=== PATIENT | female | born 1990 | race Two or more races ===

== ENCOUNTER 2023-10-19 12:38 | Outpatient (REF) | payer OTHER, SELFPAY ==
--- NOTE | ~2023-10-19 | XR_ITS ---
EXAMINATION: XR KNEE, LEFT CLINICAL INFORMATION: Left knee pain. Buckling. COMPARISON: None available. TECHNIQUE: Four views of the left knee. FINDINGS: No fracture or joint effusion. Alignment is anatomic. Joint spaces are maintained. No abnormal soft tissue calcification. XR/XR knee LT 3V IMPRESSION: Unremarkable examination. Electronically signed by: Justo Steel MD 11/03/2023 08:33 PM EDT RP
== END 2023-10-19 12:39 | disposition home or self-care (01) ==
LOC: HO.HOSX 12:38
PROVIDERS: PCP Internal Medicine; Visit Provider Orthopaedic Surgery
DX: M25.562 Pain in left knee (principal)
CPT/HCPCS: 73562; 99202

== ENCOUNTER 2023-10-19 13:14 | Outpatient (AMB) | payer OTHER, SELFPAY ==
--- NOTE | 2023-10-19 13:16 | A.OFFVIS_ITS ---
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 Rodriguez presents with complaints of progressively worsening left knee pain and giving way. The patient states that she injured her left knee approximately 1 year ago. She twisted her knee and had acute onset of pain. Since that time her symptoms have gotten worse in spite of continued non operative treatments. She has failed the last 6 weeks of conservative treatment. She has had injections in the past which gave her minimal relief. She has also done physical therapy exercises which aggravated her pain. She has tried Tylenol and anti-inflammatory medicines which gave her minimal relief. She states that her left knee will give out several times per day. Allergies No Known Allergies Allergy (Verified 10/19/23 13:20) Medication List - Last Reconciled 10/20/23 by Ned Crandall MD No Known Home Meds Physical Exam Const Other: Well-nourished well-developed very friendly female awake alert and oriented x3 in no acute distress Extrem Other: Bilateral lower extremity examination shows good capillary refill, no skin lesions noted, normal sensation light touch Left knee examination shows a minimal effusion, minimal crepitus with range of motion, tenderness along her medial joint line, positive Td's test, no instability Results Reviewed Results Reviewed: Standing full weight-bearing x-rays of the patient's left knee show minimal joint space narrowing, no acute bony abnormalities Assessment & Plan Assessment & Plan (1) Left knee pain: Code(s): M25.562 - Pain in left knee Category: Medical Plan Ms. Rodriguez presents with progressively worsening left knee pain and mechanical symptoms most likely due to a tear of her medial meniscus. Thus, I will send the patient for an MRI of her left knee for further evaluation. I will see her back once the MRI is completed to discuss the findings and treatment options. Feel free to call me at any time should questions regarding her orthopedic management arise. Thank you very much for asking me to see this very friendly patient. I spent 21 minutes in reviewing the patient's records and imaging studies, seeing the patient and documenting in the medical record. Orders: Orders XR knee LT 3V 10/19/23 M25.562 - Pain in left knee MR knee LT wo con Today M25.562 - Pain in left knee Coding Level of Care Code New Pt Level 3 (44052) Complex EM visit Add On G2315 Diagnoses Left knee pain M25.561
== END 2023-10-19 13:41 | disposition home or self-care (01) ==
PROVIDERS: PCP Internal Medicine; Visit Provider Orthopaedic Surgery
DX: M25.562 Pain in left knee (principal)
CPT/HCPCS: 99203; G2211

== ENCOUNTER 2023-11-10 08:58 | Outpatient (AMB) | payer OTHER, SELFPAY ==
--- NOTE | 2023-11-10 09:00 | A.OFFVIS_ITS ---
Vital Signs 11/10/23 09:01 Height 4 ft 11 in Weight 210 lb BMI 42.4 Intake Visit Reasons: Left knee MRI Review Intake Note: Jeri is a 33 year old female who presents with mild intermittent discomfort in her left knee. The patient thinks that she may have aggravated her knee several months ago while doing sprints. She denies any locking or giving way. Since stopping the splints for exercise her knee has felt better. She has had cortisone injections given into her right knee which gave her fairly good relief. She wishes to hold off on a left knee injection for now. Allergies No Known Allergies Allergy (Verified 11/10/23 09:02) Medication List - Last Reconciled 11/10/23 by Ned Crandall MD No Known Home Meds [facility] Social History (Updated 11/10/23 @ 09:03 by GLORIA Madison) Alcohol intake: current Alcohol intake frequency: holidays/special occasions only Patient Tobacco Use Status: Current someday Tobacco user Substance Use Type: Marijuana Current occupational status: employed Current occupation: [employer] Physical Exam Vital Signs: BMI result Body Mass Index 42.4 Const Other: Well-nourished well-developed very friendly female awake alert and oriented x3 in no acute distress Extrem Other: Bilateral lower extremity examination shows good capillary refill, no skin lesions noted, normal sensation light touch Left knee examination shows a minimal effusion, minimal crepitus of motion, negative Td's test, no instability Results Reviewed Results Reviewed: MRI of the patient's left knee shows a benign 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 Rodriguez presents with intermittent left knee discomfort due to early degenerative joint disease as well as overuse. I had a lengthy discussion with the patient regarding the treatment options. We will hold off on a cortisone injection. Activity modifications were discussed at length with the patient. She will follow up with me on an as-needed basis should her symptoms worsen in any way. Feel free to call me at any time should questions regarding her orthopedic management arise. I spent 22 minutes in reviewing the patient's records and imaging studies, seeing the patient and documenting in the medical record. Coding Level of Care Code Est Pt Level 3 (98723) Complex EM visit Add On G2211 Diagnoses Left knee pain M25.562
[2023-11-10 09:01] VITALS: BMI 42.4
== END 2023-11-10 09:23 | disposition home or self-care (01) ==
PROVIDERS: PCP Internal Medicine; Visit Provider Orthopaedic Surgery
DX: M17.12 Unilateral primary osteoarthritis, left knee (principal)
CPT/HCPCS: 99213

== ENCOUNTER → 2023-11-10 08:58 | Outpatient (BNVA) | payer OTHER, SELFPAY | PROVIDERS: PCP Internal Medicine; Visit Provider Orthopaedic Surgery | DX: M25.562 Pain in left knee (principal) | CPT/HCPCS: 99212 ==

== ENCOUNTER 2024-12-20 14:55 | Outpatient (AMB) | payer OTHER, SELFPAY ==
--- OUTSIDE RECORDS SUMMARY | 2024-07-24 10:30 | XMS_ITS ---
Author Organization [facility] Address [address] [facility] 202 [place] [address] Care Team Providers Care Rag Room Supervisor Name Role Phone WILL FULLER Primary Care Provider Unavailab TAVO Lomeli [phone] REASON FOR VISIT WM f/up Encounters Encounter Location Date Provider Diagnosis [facility] [address] [address] 07/24/2024 TAVO CHACON Plan Of Treatment Next Appt Details Provider Name:TAVO CHACON , 01/18/2025 10:45:00 AM, [address] [place] [address] [address], [place], [address], Progress Notes * MICHAELDaniin LDOB: [birth year] (34 yo F)Acc No.[id number]:07/24/2024 Patient: Meliza MODE Jeri Pina Provider: Jillian CHACON MD :1990 A ge:33 Y S ex:Female Date:07/24/2024 Address[address] [place], [id number] Pcp:WILL FULLER Subjective: * Chief Complaints: * 1 . WM f/up. * Medical History: Objective: * Vitals: Assessment: Plan: * Treatment: * Images: * Electronic signature of MAU CHACON MD on 12/20/2024 at 06:02 PM EST Sign off status: Pending * Provider: Jillian CHACON MD Date: 07/24/2024 Generated for Mike bernal/Tish/Clarice on: 1 02/20/2024 06:02 PM EST
--- OUTSIDE RECORDS SUMMARY | 2024-07-25 09:30 | XMS_ITS ---
Author Organization [facility] Address 294 [facility] 202 [place] [address] Care Team Providers Care Beam Machine Operator Name Role Phone WILL FULLER Primary Care Provider Unavailab Rodney Jean-Baptiste [phone] REASON FOR VISIT WM f/up Encounters Encounter Location Date Provider Diagnosis [facility] 294 [facility] 202 [place] [address] 07/25/2024 Rodney Parker Plan Of Treatment Next Appt Details Provider Name:TAVO CHACON , 01/18/2025 10:45:00 AM, [address] [facility] [address], [place], [address], Progress Notes * MICHAEL Jeri LDOB: [birth year] (34 yo F)Acc No.[id number]:07/25/2024 Patient: Meliza MODE Jeri Pina Appointment Provider: Alexander Parker :1990 A ge:33 Y S ex:Female Date:07/25/2024 Address[address] [place], [place] Pcp:WILL FULLER Subjective: * Chief Complaints: * 1 . WM f/up. * Medical History: Objective: * Vitals: Assessment: Plan: * Treatment: * Images: * Electronic signature of Nelda Parker PA-C on 12/20/2024 at 06:02 PM EST Sign off status: Pending * Appointment Provider: Alexander Parker Date: 0 07/25/2024 Generated for Mike bernal/Tish/Clarice on: 1 02/20/2024 06:02 PM EST
--- OUTSIDE RECORDS SUMMARY | 2024-11-16 06:30 | XMS_ITS ---
Author Organization [facility] Address 294 [facility] 202 [place] [address] Care Team Providers Care Deep Tissue Massage Therapist Name Role Phone WILL FULLER Primary Care Provider Unavailab Rodney Jean-Baptiste [phone] REASON FOR VISIT WM f/up Encounters Encounter Location Date Provider Diagnosis [facility] [address] [address] 11/16/2024 Rodney Parker Plan Of Treatment Next Appt Details Provider Name:TAVO CHACON , 01/18/2025 10:45:00 AM, 294 [facility] [address], [place], [address], Progress Notes * PIPODaniin LDOB: [birth year] (34 yo F)Acc No.[id number]:11/16/2024 Patient: Meliza MODE Jeri Pina Appointment Provider: Alexander Parker :1990 A ge:34 Y S ex:Female Date:11/16/2024 Address:[address] [place], [place] Pcp:WILL FULLER Subjective: * Chief Complaints: * 1 . WM f/up. * Medical History: Objective: * Vitals: Assessment: Plan: * Treatment: * Procedure Codes: N OSHO NO SHOW FEE * Images: * Electronic signature of Nelda Parker PA-C on 12/20/2024 at 06:02 PM EST Sign off status: Pending * Appointment Provider: Alexander Parker Date: 1 Generated for Mike bernal/Tish/Clarice on: 02/20/2024 06:02 PM EST
--- OUTSIDE RECORDS SUMMARY | 2024-12-19 05:30 | XMS_ITS ---
Author Organization [employer] Address [address] [place] [address] [address] [place] [address] Care Team Providers Care Computer Security Specialist Name Role Phone DANIELEJohnathon WILL Primary Care Provider Unavailab TAVO Lomeli Unavailable [phone] Allergies No Known Allergies REASON FOR VISIT [...] Signs Temperature 97.4 degrees Fahrenheit 12/20/19 25 Oximetry 97 % 12/19/2024 Heart Rate 80 /min 12/19/2024 Blood pressure systolic 110 mm Hg 12/20/19 25 Blood pressure diastolic 80 mm Hg 025 Weight 195.8 lbs 12/19/2024 BMI 39.54 kg/m2 12/19/2024 Height 59 in 12/19/2024 Encounters Encounter Location Date Provider Diagnosis [facility] [address] [place] [address] 12/19/2024 TAVO CHACON Morbid (severe) obesity due [...] Meal replacements were recommended. Advised to use lwcs-eiu-wufkdjr multivitamins and vitamin D. Advised to use [...] Meal replacements were recommended. Advised to use evae-shk-cjechdi multivitamins and vitamin D. Advised to use [...] Provider Name:TAVO CHACON , 01/18/2025 10:45:00 AM, [address] [place] [address], [id number], Progress Notes * Jeri RODRIGUEZ LDOB: [birth year] (34 yo F)Acc No.[id number]:12/19/2024 Patient: Jeri HAIR Provider: Jillian CHACON MD :1990 A ge:34 Y S ex:Female Date:12/19/2024 Address:[address] [place] [address] [id number] Pcp:WILL FULLER Subjective: * Chief Complaints: * [...] Meal replacements were recommended. Advised to use xxjf-crb-meyqyxo multivitamins and vitamin D. Advised to use [...] Codes: 3 079F DIAST BP 80-89 MM [id number] SYST BP LT 130 MM HG * Follow Up: 4 Weeks * Images: * Sign off status: Completed true * Provider: Jillian CHACON MD Date: 02/19/2024 Generated for Mike bernal/Tish/Pepperitting on: 02/20/2024 06:02 PM EST History and Physical Notes * [...]
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
[2024-12-20 15:15] VITALS: BP 116/74; BMI 37.2
--- OUTSIDE RECORDS SUMMARY | 2024-12-20 18:02 | XMS_ITS | Encounter Summary ---
Author Organization [facility] Address [address] [place] [address] Care Team Providers Care Security Trainer Name Role Phone Yue Judy Ribera MD Primary Care Provider [phone] Encounter Details Date Type Department Care Team (Latest Contact Info) Description 09/13/2024 Lab Requisition [facility] - Main Lab [address] [facility] [place] [address] [facility] [address] [place] [address] Urinary tract infection, site not specified; Hematuria, unspecified; Other specified noninflammatory disorders of vagina Social History Tobacco Use Types Packs/Day Years Used Date Smoking Tobacco: Some Days Cigarettes Started: 03/20/2008 Smokeless Tobacco: Never Alcohol Use Standard Drinks/Week Comments Yes 0 (1 standard drink = 0.6 oz pur e alcohol) Comments Unknown Sex and Gender Information Value Date Recorded Sex Assigned at Not on file Legal Sex Female 1:32 AM EST Gender Identity Not on file Sexual Orientation Not on file documented as of this encounter Plan of Treatment Not on file documented as of this encounter Procedures Procedure Name Priority Date/Time Associated Diagnosis Comments URINALYSIS WITH REFLEX MICROSCOPIC Routine 09/13/2024 12:00 AM EDT Urinary tract infection, site not specified Hematuria, unspecified Other specified noninflammatory disorders of vagina URINALYSIS WITH REFLEX MICROSCOPIC Routine 09/13/2024 12:00 AM EDT Urinary tract infection, site not specified Hematuria, unspecified Other specified noninflammatory disorders of vagina VAGINITIS PATHOGENS BY PCR Routine 09/13/2024 12:00 AM EDT Urinary tract infection, site not specified Hematuria, unspecified Other specified noninflammatory disorders of vagina CHLAMYDIA TRACHOMATIS AND NEISSERIA GONORRHOEAE PCR Routine 09/13/2024 12:00 AM EDT Urinary tract infection, site not specified Hematuria, unspecified Other specified noninflammatory disorders of vagina CULTURE URINE Routine 09/13/2024 12:00 AM EDT Urinary tract infection, site not specified Hematuria, unspecified Other specified noninflammatory disorders of vagina documented in this encounter Results * (ABNORMAL) Vaginitis pathogens molecular study (09/13/2024 12:00 AM EDT) Trichomonas vaginalis Negative Negative 09/14/2024 10:36 AM EDT [facility] Gardnerella vaginalis Positive(A) Negative 09/14/2024 10:36 AM EDT [facility] Molly Species Negative Negative 10:36 AM EDT [facility] Swab Vaginal structure / Unknown 09/13/2024 09/13/2024 7:32 PM EDT [facility] MICROBIOLOGY - GENERAL ORDER THANG Final Result [facility] [address] [place] [address], * Chlamydia trachomatis and Neisseria gonorrhoeae molecular study (09/13/2024 12:00 AM EDT) Neisseria gonorrhoeae PCR Negative Negative LAB MOLECULAR DIAGNOSTICS METHOD 09/14/2024 9:36 AM EDT [facility] Chlamydia trachomatis PCR Negative Negative LAB MOLECULAR DIAGNOSTICS METHOD 09/14/2024 9:36 AM EDT [facility] Urine Cervix uteri structure / Unknown 09/13/2024 09/13/2024 7:32 PM EDT [facility] MICROBIOLOGY - GENERAL ORDER THANG Final Result [facility] [address] [place] [address], [place] [phone] * (ABNORMAL) Urinalysis with reflex microscopic (09/13/2024 12:00 AM EDT) Pathologist [facility] Specific [place] Urine 1.024 1.003 - 1.030 LAB URINALYSIS - AUTOMATED METHOD [facility]2024 [facility] pH, Urine 6.0 5.0 - 8.0 pH LAB URINALYSIS - AUTOMATED METHOD 09/13/2024 8:03 PM [facility] Leukocytes, Urine Negative Negative LAB URINALYSIS - AUTOMATED METHOD 09/13/2024 8:03 PM [facility] Nitrite, Urine Negative Negative LAB URINALYSIS - AUTOMATED METHOD 09/13/2024 8:03 PM [facility] Protein, Urine Negative <=Trace mg/dL LAB URINALYSIS - AUTOMATED METHOD 09/13/2024 8:03 PM [facility] Glucose, Urine Negative Negative mg/dL LAB URINALYSIS - AUTOMATED METHOD 09/13/2024 8:03 PM [facility] Ketones, Urine Trace(A) Negative mg/dL LAB URINALYSIS - AUTOMATED METHOD 09/13/2024 8:03 PM [facility] Urobilinogen, Urine 1.0 0.2 - 1.0 mg/dL LAB URINALYSIS - AUTOMATED METHOD 09/13/2024 8:03 PM [facility] Bilirubin, Urine Negative Negative LAB URINALYSIS - AUTOMATED METHOD 09/13/2024 8:03 PM [facility] Blood, Urine Negative Negative LAB URINALYSIS - AUTOMATED METHOD 09/13/2024 8:03 PM EDT [facility] Urine Urine specimen obtained by clean catch procedure / Unknown 09/13/2024 09/13/2024 7:32 PM EDT [facility] URINE ORDERABLES Final Resul t Performing Organization Address [facility]/ZIP Co de Phone Number [facility] [address] [place] [address], [place] [phone] * Culture urine (09/13/2024 12:00 AM EDT) Culture, Urine No growth 09/14/2024 1:58 PM EDT [facility] Urine Urine specimen obtained by clean catch procedure / Unknown 09/13/2024 09/13/2024 7:32 PM EDT [facility] MICROBIOLOGY - GENERAL ORDER THANG Final Result Performing Organization Address [facility] Co de Phone Number [facility] [address] [place] [address], [place] [phone] documented in this encounter Visit Diagnoses Diagnosis Urinary tract infection, site not specified Hematuria, unspecified Other specified noninflammatory disorders of vagina documented in this encounter Additional Health Concerns Infection Onset Date Last Indicated Resolved Time Herpes simplex 10/22/2024 10/22/2024 documented as of this encounter Care Teams Security Trainer Relationship Specialty Start Date End Date Judy Turner MD [address] [place] [address] PCP - General Internal Medicine 08/28/21 documented as of this encounter
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
--- OUTSIDE RECORDS SUMMARY | 2024-12-20 18:02 | XMS_ITS | Patient Health Record ---
Author Organization [facility] Address [address] [place] [address] Care Team Providers Care Silk Screener Name Role Phone JONNY WILL Primary Care Provider Unavailab jacob CHACON VO Unavailable [phone] JasealeksandarRodney whittaker Unavailable [phone] Allergies No Known Allergies Results Component Value Reference Range Notes TREPONEMA PALLIDUM ANTIBODY WITH REFLEX TO RPR AND PARTICLE AGGLUTINATION Reviewed date:10/23/2024 08:01:30 AM Interpretation: Performing Lab: Notes/Report: T. Pallidum Antibodies Negative Negative HERPES SIMPLEX VIRUS 1 AND 2 , IGG Reviewed date:10/23/2024 12:24:36 PM Interpretation: Performing Lab: Notes/Report: HSV 1 IgG 45.80 <=0.90 index cr HSV-1 IgG Interpretation Positive Negative HSV 2 IgG 0.35 <=0.90 index cr HSV-2 IgG Interpretation Negative Negative VAGINITIS PATHOGENS MOLECULA R STUDY Reviewed date:10/24/2024 03:07:30 PM Interpretation: Performing Lab: Notes/Report: Trichomonas vaginalis Negative Negative Gardnerella vaginalis Positive Negative Molly Species Positive Negative HEPATITIS B SCREENING PANEL Reviewed date:10/23/2024 08:01:33 AM Interpretation: Performing Lab: Notes/Report: Hepatitis B Surface Ag Negative Negative Hep B Core Total Ab Negative Negative Hepatitis B Surface Ab Positive Negative HEPATITIS C VIRUS QUANTITATI VE MOLECULAR STUDY Reviewed date:10/23/2024 12:24:33 PM Interpretation: Performing Lab: Notes/Report: HCV Qual Interp Not Detected Not Detected HCV RNA not detected, unable to report quantitative results. CHLAMYDIA TRACHOMATIS AND NE ISSERIA GONORRHOEAE MOLECULAR STUDY Reviewed date:10/23/2024 12:24:31 PM Interpretation: Performing Lab: Notes/Report: Neisseria gonorrhoeae PCR Negative Negative Chlamydia trachomatis PCR Negative Negative HIV 1, 2 ANTIBODY, P24 ANTIG EN WITH REFLEX TO DIFFERENTIATION Reviewed date:10/23/2024 08:01:48 AM Interpretation: Performing Lab: Notes/Report: This assay is a 4th generation assay allowing for earlier detection of HIV infection by detecting the presence of the HIV-1 p24 antigen as well as the traditional antibodies to HIV type 1 (including group O) and type 2. Use of a 4th generation assay is the current CDC recommendation for HIV screening. HIV Combo AB/AG Negative Negative HEPATITIS C ANTIBODY Reviewed date:10/23/2024 08:01:56 AM Interpretation: Performing Lab: Notes/Report: Hepatitis C Antibody Negative Negative CULTURE URINE Reviewed date:10/23/2024 05:03:55 PM Interpretation: Performing Lab: Notes/Report: Culture, Urine No growth URINALYSIS WITH REFLEX MICRO SCOPIC Reviewed date:10/23/2024 12:24:43 PM Interpretation: Performing Lab: Notes/Report: Specific Dyer Urine 1.026 1.003-1.030 pH, Urine 6.0 5.0-8.0 pH Leukocytes, Urine Small Negative Nitrite, Urine Negative Negative Protein, Urine Negative <=Trace mg/dL Glucose, Urine Negative Negative mg/dL Ketones, Urine Negative Negative mg/dL Urobilinogen, Urine 0.2 0.2-1.0 mg/dL Bilirubin, Urine Negative Negative Blood, Urine Negative Negative RBC, Urine 2.0 0-4 /HPF WBC, Urine 10.1 0-4 /HPF Squamous Epithelial, Urine >100 0-60 /LPF Bacteria, Urine Few Negative /HPF Hyaline Casts, Urine 2.4 0-3 /LPF THYROID STIMULATING HORMONE Reviewed date:06/03/2024 07:18:44 AM Interpretation: Performing Lab: Notes/Report: TSH 2.22 0.40-4.00 mcIU/mL HEMOGLOBIN A1C Reviewed date:06/02/2024 06:41:19 PM Interpretation: Performing Lab: Notes/Report: Hemoglobin A1C 5.6 <6.5 % Mean Bld Glu Estim. 114 LIPID PANEL WITH REFLEX TO D IRECT LDL Reviewed date:06/03/2024 07:18:50 AM Interpretation: Performing Lab: Notes/Report: Cholesterol 186 0-200 mg/dL Triglycerides 179 0-150 mg/dL HDL 48 >=40 mg/dL LDL Calculated 102 0-100 mg/dL VLDL Cholesterol Murali 35.8 Non HDL Chol. (LDL+VLDL) 138 <145 mg/dL Chol/HDL Ratio 3.9 0.0-4.4 VAGINITIS PATHOGENS MOLECULA R STUDY Reviewed date:09/14/2024 01:54:52 PM Interpretation: Performing Lab: Notes/Report: Trichomonas vaginalis Negative Negative Gardnerella vaginalis Positive Negative Molly Species Negative Negative CHLAMYDIA TRACHOMATIS AND NE ISSERIA GONORRHOEAE MOLECULAR STUDY Reviewed date:09/14/2024 01:54:55 PM Interpretation: Performing Lab: Notes/Report: Neisseria gonorrhoeae PCR Negative Negative Chlamydia trachomatis PCR Negative Negative HIV 1, 2 ANTIBODY, P24 ANTIG EN WITH REFLEX TO DIFFERENTIATION Reviewed date:09/14/2024 07:48:49 AM Interpretation: Performing Lab: Notes/Report: This assay is a 4th generation assay allowing for earlier detection of HIV infection by detecting the presence of the HIV-1 p24 antigen as well as the traditional antibodies to HIV type 1 (including group O) and type 2. Use of a 4th generation assay is the current CDC recommendation for HIV screening. HIV Combo AB/AG Negative Negative TREPONEMA PALLIDUM ANTIBODY WITH REFLEX TO RPR AND PARTICLE AGGLUTINATION Reviewed date:09/14/2024 07:48:55 AM Interpretation: Performing Lab: Notes/Report: T. Pallidum Antibodies Negative Negative CULTURE URINE Reviewed date:09/17/2024 07:40:19 AM Interpretation: Performing Lab: Notes/Report: Culture, Urine No growth URINALYSIS WITH REFLEX MICRO SCOPIC Reviewed date:09/14/2024 07:53:02 AM Interpretation: Performing Lab: Notes/Report: Specific Dyer Urine 1.024 1.003-1.030 pH, Urine 6.0 5.0-8.0 pH Leukocytes, Urine Negative Negative Nitrite, Urine Negative Negative Protein, Urine Negative <=Trace mg/dL Glucose, Urine Negative Negative mg/dL Ketones, Urine Trace Negative mg/dL Urobilinogen, Urine 1.0 0.2-1.0 mg/dL Bilirubin, Urine Negative Negative Blood, Urine Negative Negative GASTROINTESTINAL PATHOGENS M MATIAS STUDY Reviewed date:05/21/2024 11:51:59 AM Interpretation: Performing Lab: Notes/Report: PCR testing is much more sensitive than traditional techniques and allows for the detection of low numbers of stool pathogens. The clinical correlation of PCR results with the need for treatment and clinical outcomes has not been established. Therefore the results of PCR testing for stool pathogens must be taken into clinical context when making treatment decisions. This is a diagnostic test only, repeat testing for cure is not advised. You may consider infectious disease consult for additional guidance. Testing Performed by MULTIPLEXED PCR Campylobacter Detection by PCR Not Detected Not Detected Plesiomonas shigelloides Detection by PCR Not Detected Not Detected Salmonella Detection by PCR Not Detected Not Detected Vibrio Detection by PCR Not Detected Not Detected Vibrio cholerae Detection by PCR Not Detected Not Detected Yersinia enterocolitica Detection by PCR Not Detected Not Detected Enteroaggregative E coli EAEC Detection by PCR Not Detected Not Detected Enteropathogenic E coli EPEC Detection Not Detected Not Detected Enterotoxigenic E coli ETEC LTST Detection Not Detected Not Detected Shiga-like toxin producing E coli STEC STX1 STX2 Det Not Detected Not Detected Shigella Enteroinvasive E coli EIEC Detection Not Detected Not Detected Cryptosporidium Detection by PCR Not Detected Not Detected Cyclospora cayetanensis Detection by PCR Not Detected Not Detected Entamoeba histolytica Detection by PCR Not Detected Not Detected Giardia lamblia Detection by PCR Not Detected Not Detected Adenovirus F 40 41 Detection by PCR Not Detected Not Detected Astrovirus Detection by PCR Not Detected Not Detected Norovirus GI GII Detection by PCR Not Detected Sapovirus Detection by PCR Not Detected Not Detected Rotavirus A Detection by PCR Not Detected Not Detected BILIRUBIN DUPLICATE PROCEDUR E TO ORDER Reviewed date:05/16/2024 07:47:51 AM Interpretation: Performing Lab: Notes/Report: Total Bilirubin 0.5 0.0-1.4 mg/dL Bilirubin, Direct 0.2 0.0-0.3 mg/dL Bilirubin, Indirect 0.3 0.0-1.1 mg/dL C-REACTIVE PROTEIN Reviewed date:05/16/2024 07:47:57 AM Interpretation: Performing Lab: Notes/Report: C-Reactive Protein <0.29 <=0.50 mg/dL SEDIMENTATION RATE Reviewed date:05/15/2024 05:17:50 PM Interpretation: Performing Lab: Notes/Report: Sed Rate 6 0-20 mm/hr CULTURE URINE Reviewed date:05/17/2024 03:42:55 PM Interpretation: Performing Lab: Notes/Report: Culture, Urine 10,000-49,000 CFU/mL Mixed urogenital shan, no uropathogens present. Suggest repeat specimen if clinically indicated. COMPREHENSIVE METABOLIC PANE L Reviewed date:05/16/2024 07:49:17 AM Interpretation: Performing Lab: Notes/Report: Sodium 136 133-145 mmol/L Potassium 3.7 3.5-5.5 mmol/L Chloride 106 96-110 mmol/L CO2 21 21-32 mmol/L Anion Gap 9 3-11 Glucose 111 70-100 mg/dL BUN 14 5-25 mg/dL Creatinine 0.92 0.50-1.10 mg/dL eGFR 83 >=60 mL/min/1.73m2 Calculation based on the?Chronic Kidney Disease Epidemiology Collaboration (CKD-EPI) equation refit?without adjustment for race. BUN/Creatinine Ratio 15.2 Calcium 9.4 8.5-10.5 mg/dL AST (SGOT) 30 10-42 unit/L ALT (SGPT) 55 10-60 unit/L Alkaline Phosphatase 58 42-121 unit/L Total Protein 7.1 6.0-8.0 g/dL Albumin 4.0 3.2-5.0 g/dL Total Bilirubin 0.5 0.0-1.4 mg/dL CBC WITH AUTO DIFFERENTIAL Reviewed date:05/15/2024 05:18:26 PM Interpretation: Performing Lab: Notes/Report: WBC 7.2 4.8-10.8 K/mcL RBC 4.70 3.80-4.80 M/mcL Hemoglobin 13.6 11.5-16.0 g/dL Hematocrit 40.9 35.0-47.0 % MCV 86.3 79.0-98.0 FL MCH 28.7 27.0-32.0 pcg MCHC 33.3 32.0-37.0 g/dL RDW 12.6 11.0-15.0 % Platelets 284 130-400 K/mcL MPV 9.7 7.0-11.0 FL NRBC 0.0 <1.0 % NRBC Absolute 0.00 <0.10 K/mcL Neutrophils Relative 65.6 Lymphocytes Relative 24.4 Monocytes Relative 6.8 Eosinophils Relative 1.5 Basophils Relative 0.6 Immature Granulocytes Relative 1.1 Neutrophils Absolute 4.69 1.50-7.00 K/mcL Lymphocytes Absolute 1.75 1.00-5.00 K/mcL Monocytes Absolute 0.49 0.20-1.00 K/mcL Eosinophils Absolute 0.11 0.00-0.50 K/mcL Basophils Absolute 0.04 0.00-0.20 K/mcL Immature Granulocytes Absolute 0.08 0.00-0.03 K/mcL URINALYSIS WITH REFLEX MICRO SCOPIC Reviewed date:05/16/2024 07:46:29 AM Interpretation: Performing Lab: Notes/Report: Specific Dyer Urine 1.026 1.003-1.030 pH, Urine 5.0 5.0-8.0 pH Leukocytes, Urine Negative Negative Nitrite, Urine Negative Negative Protein, Urine Negative <=Trace mg/dL Glucose, Urine Negative Negative mg/dL Ketones, Urine Trace Negative mg/dL Urobilinogen, Urine 0.2 0.2-1.0 mg/dL Bilirubin, Urine Negative Negative Blood, Urine Negative Negative Reason For Referral No Information Medications Medication SIG (Take, Route, Frequency, Duration) Notes Start Date End Date Status Triamcinolone (oint)-Silicone Active Cetirizine HCl 10 MG 1 tablet Orally Onc e a day Active Qsymia 7.5-46 MG 1 capsule Orally Onc e a day; Duration: 30 days 08/19/2022 Not-Takin g Zepbound 2.5 MG/0.5ML 0.5 mL Subcutaneou s weekly; Duration: 30 days 06/20/2024 Not-Taking Qsymia 3.75-23 MG 1 capsule Orally Onc e a day; Duration: 14 days 05/31/2022 Not-Takin g Phentermine HCl 15 MG 1 capsule Orally O nce a day; Duration: 30 days 12/19/2024 Active Albuterol Sulfate 108 (90 Base) MCG/ACT 1 puff as needed Inhalation every 4 hrs Active Topiramate 50 MG 1 tablet Orally Once a day; Duration: 30 days 10/19/2024 Active Immunizations Vaccine Route Administration Date Status Comme nts DTP Unknown 1988 Administered DTP Unknown 01/14/1989 Administered DTP Unknown 03/17/1989 Administered DTP Unknown 07/15/1990 Administered DTP Unknown 08/14/1993 Administered Hep B, adolescent or pediatr ic (11-19), 3 dose schedule Unknown 01/05/2002 Administered Hep B, adolescent or pediatr ic (11-19), 3 dose schedule Unknown 02/21/2002 Administered Hep B, adolescent or pediatr ic (11-19), 3 dose schedule Unknown 04/05/2003 Administered HPV (human papillomavirus), quadrivalent, 3 dose schedule Unknown 05/23/2008 Administered HPV (human papillomavirus), quadrivalent, 3 dose schedule Unknown 07/30/2008 Administered HPV (human papillomavirus), quadrivalent, 3 dose schedule Unknown 04/01/2009 Administered IPV Unknown 1988 Administered IPV Unknown 01/14/1989 Administered IPV Unknown 07/15/1990 Administered IPV Unknown 08/14/1993 Administered Meningococcal MCV4O (CVX 114) Unknown 05/23/2008 Admini stered MMR Unknown 09/14/1989 Administered MMR Unknown 11/14/1990 Administered Pneumococcal polysaccharide PPV23 Unknown 02/02/2013 Ad ministered Td (adult), absorbed Unknown 01/05/2002 Administered Td (adult), absorbed Unknown 03/28/2019 Administered Tdap Unknown 05/23/2008 Administered Social History Tobacco Use: Social History Observation Description Date Details (start date - stop date) Current Smoker NA - NA Tobacco Use/Smoking Question Answer Notes Are you a current smoker How often do you smoke cigarettes? every day How many cigarettes a day do you smoke? 5 or les s Alcohol Screen (Audit-C) Question Answer Notes Did you have a drink contain ing alcohol in the past year? Yes How often did you have a dri nk containing alcohol in the past year? 2 to 4 times a month (2 points) How many drinks did you have on a typical day when you were drinking in the past year? 1 or 2 drinks (0 point) Points 2 Interpretation Negative Problems Problem Type SNOMED Code ICD Code Onset Dates Problem Status W/U Status Risk Notes Problem Morbid obesity (disorder) (748123301) Morbid (severe) obesity due to excess calories (E66.01) Active confirmed Problem Cannabis abuse (41127118) Cannabis abuse, uncomplicated (F12.10) Active confirmed Problem Tobacco user (046045357) Nicotine dependence, cigarettes, uncomplicated (F17.210) Active confirmed Problem Mild intermittent asthma (089291309) Mild intermittent asthma, uncomplicated (J45.20) Active confirmed Vital Signs Heart Rate 80 /min 12/19/2024 Temperature 97.4 degrees Fahrenheit 12/19/2024 Oximetry 97 % 12/19/2024 Blood pressure diastolic 80 mm Hg 12/19/2024 Height 59 in 12/19/2024 Blood pressure systolic 110 mm Hg 12/19/2024 Weight 195.8 lbs 12/19/2024 BMI 39.54 kg/m2 12/19/2024 Encounters Encounter Location Date Provider Diagnosis [facility] [address] [place] [address] 11/16/2024 Ghadeer Mazloum [facility] [address] [place] [address] 06/19/2024 VO GUL Morbid (severe) obesity due to excess calories E66.01 and Dietary counseling and surveillance Z71.3 [facility] [address] [place] [address] 08/01/2024 Ghadeer Mazloum Morbid (severe) obesity due to excess calories E66.01 and Dietary counseling and surveillance Z71.3 [facility] [address] [place] [address] 08/30/[address] [place] [address] 09/06/2024 Ghadeer Mazloum Morbid (severe) obesity due to excess calories E66.01 and Dietary counseling and surveillance Z71.3 [facility] [address] [place] [address] 10/19/2024 Ghadeer Mazloum Morbid (severe) obesity due to excess calories E66.01 and Dietary counseling and surveillance Z71.3 [facility] [address] [place] [address] 12/19/2024 VO GUL Morbid (severe) obesity due to excess calories E66.01 and Dietary counseling and surveillance Z71.[address] [place] [address] 06/20/[address] [place] [address] 06/20/[address] [place] [address] 06/25/[address] [place] [address] 07/25/[address] [place] [address] 08/30/[address] [place] [address] 09/04/[address] [place] [address] 09/10/[address] [place] [address] 10/19/[address] [place] [address] [facility] Morbid (severe) obesity due to excess calories E66.[address] [place] [address] 10/24/[address] [place] [address] 11/19/2024 Rodney Parker Assessments Encounter Date Diagnosis (ICD Code) Assessment Notes Treatment Notes Treatment Clinical Notes Section Notes 06/19/2024 Morbid (severe) obesity due to excess calories (ICD-10 - E66.01) Jeri is 33 years old lady with mild intermittent asthma is here today to continue medical weight management. She was seen 2 years ago. Her weight is stable. She was on Qsymia at the time. Dietary recommendations. Food recall was done today and patient advised to be on low calorie, low carbohydrate diet. Restrict calories to less than 1500 kcal in 24 hours. Low glycemic index foods and encouraged. Meal replacements were recommended. Advised to use paim-nch-oearucl multivitamins and vitamin D. Advised to use calorie counter and adhere to portion control. Monthly goal is to lose 4-6 pounds Pharmacotherapy. She is interested in GLP-1. She will check with her insurance and let us know. Side effects explained to the patient. Goal [...] interviewing done. Arrange. Follow-up appointment arranged. Counseling. 20 minutes spent Face to face with the patient more than 50% of time was spent counseling 06/19/2024 Dietary counseling and surveillance (ICD-10 - Z71.3) Jeri is 33 years old lady with mild intermittent asthma is here today to continue medical weight management. She was seen 2 years ago. Her weight is stable. She was on Qsymia at the time. Dietary recommendations. Food recall was done today and patient advised to be on low calorie, low carbohydrate diet. Restrict calories to less than 1500 kcal in 24 hours. Low glycemic index foods and encouraged. Meal replacements were recommended. Advised to use yrlz-fth-ttmeqpy multivitamins and vitamin D. Advised to use calorie counter and adhere to portion control. Monthly goal is to lose 4-6 pounds Pharmacotherapy. She is interested in GLP-1. She will check with her insurance and let us know. Side effects explained to the patient. Goal [...] interviewing done. Arrange. Follow-up appointment arranged. Counseling. 20 minutes spent Face to face with the patient more than 50% of time was spent counseling 08/01/2024 Morbid (severe) obesity due to excess calories (ICD-10 - E66.01) Jeri is 33 years old lady with mild intermittent asthma is here today to continue medical weight management. She lost 8lbs since the last visit. Plan as follows: Dietary recommendations. Food recall was done today and patient advised to be on low calorie, low carbohydrate diet. Restrict calories to less than 1500 kcal in 24 hours. Low glycemic index foods and encouraged. Meal replacements were recommended. Advised to use srjh-qqu-jdwnisu multivitamins and vitamin D. Advised to use calorie counter and adhere to portion control. Monthly goal is to lose 4-6 pounds Pharmacotherapy. Continue on Phentermine 15mg. Side effects explained to the patient. Goal [...] interviewing done. Arrange. Follow-up appointment arranged. Counseling. 20 minutes spent Face to face with the patient more than 50% of time was spent counseling General concerns have been discussed I have rendered the services for this patient under direct supervision of Dr. Chacon, who did not see the patient but was available upon request 08/01/2024 Dietary counseling and surveillance (ICD-10 - Z71.3) Jeri is 33 years old lady with mild intermittent asthma is here today to continue medical weight management. She lost 8lbs since the last visit. Plan as follows: Dietary recommendations. Food recall was done today and patient advised to be on low calorie, low carbohydrate diet. Restrict calories to less than 1500 kcal in 24 hours. Low glycemic index foods and encouraged. Meal replacements were recommended. Advised to use jnce-ojn-ujoszch multivitamins and vitamin D. Advised to use calorie counter and adhere to portion control. Monthly goal is to lose 4-6 pounds Pharmacotherapy. Continue on Phentermine 15mg. Side effects explained to the patient. Goal [...] interviewing done. Arrange. Follow-up appointment arranged. Counseling. 20 minutes spent Face to face with the patient more than 50% of time was spent counseling General concerns have been discussed I have rendered the services for this patient under direct supervision of Dr. Chacon, who did not see the patient but was available upon request 09/06/2024 Morbid (severe) obesity due to excess calories (ICD-10 - E66.01) Jeri is 33 years old lady with mild intermittent asthma is here today to continue medical weight management. She lost 4lbs since the last visit. Plan as follows: Dietary recommendations. Food recall was done today and patient advised to be on low calorie, low carbohydrate diet. Restrict calories to less than 1500 kcal in 24 hours. Low glycemic index foods and encouraged. Meal replacements were recommended. Advised to use ujmw-wqk-thhavba multivitamins and vitamin D. Advised to use calorie counter and adhere to portion control. Monthly goal is to lose 4-6 pounds Pharmacotherapy. Continue on Phentermine 15mg. Topamax added to the regimen. Side effects explained to the patient. Goal [...] interviewing done. Arrange. Follow-up appointment arranged. Counseling. 20 minutes spent Face to face with the patient more than 50% of time was spent counseling General concerns have been discussed I have rendered the services for this patient under direct supervision of Dr. Chacon, who did not see the patient but was available upon request 09/06/2024 Dietary counseling and surveillance (ICD-10 - Z71.3) Jeri is 33 years old lady with mild intermittent asthma is here today to continue medical weight management. She lost 4lbs since the last visit. Plan as follows: Dietary recommendations. Food recall was done today and patient advised to be on low calorie, low carbohydrate diet. Restrict calories to less than 1500 kcal in 24 hours. Low glycemic index foods and encouraged. Meal replacements were recommended. Advised to use gfsz-pvw-fdtqijx multivitamins and vitamin D. Advised to use calorie counter and adhere to portion control. Monthly goal is to lose 4-6 pounds Pharmacotherapy. Continue on Phentermine 15mg. Topamax added to the regimen. Side effects explained to the patient. Goal [...] interviewing done. Arrange. Follow-up appointment arranged. Counseling. 20 minutes spent Face to face with the patient more than 50% of time was spent counseling General concerns have been discussed I have rendered the services for this patient under direct supervision of Dr. Chacon, who did not see the patient but was available upon request 10/19/2024 Morbid (severe) obesity due to excess calories (ICD-10 - E66.01) Jeri is 34 years old lady with mild intermittent asthma is here today to continue medical weight management. She lost a total of 14 pounds so far And 2lbs since the last visit. Plan as follows: Dietary recommendations. Food recall was done today and patient advised to be on low calorie, low carbohydrate diet. Restrict calories to less than 1500 kcal in 24 hours. Low glycemic index foods and encouraged. Meal replacements were recommended. Advised to use ftyt-jqb-grmcpsj multivitamins and vitamin D. Advised to use calorie counter and adhere to portion control. Monthly goal is to lose 4-6 pounds Pharmacotherapy. Increased Phentermine 30mg. Topamax Increase to 50 mg twice a day. Side effects explained to the patient. Goal [...] interviewing done. Arrange. Follow-up appointment arranged. Counseling. 20 minutes spent Face to face with the patient more than 50% of time was spent counseling General concerns have been discussed I have rendered the services for this patient under direct supervision of Dr. Chacon, who did not see the patient but was available upon request 10/19/2024 Dietary counseling and surveillance (ICD-10 - Z71.3) Jeri is 34 years old lady with mild intermittent asthma is here today to continue medical weight management. She lost a total of 14 pounds so far And 2lbs since the last visit. Plan as follows: Dietary recommendations. Food recall was done today and patient advised to be on low calorie, low carbohydrate diet. Restrict calories to less than 1500 kcal in 24 hours. Low glycemic index foods and encouraged. Meal replacements were recommended. Advised to use [id number] multivitamins and vitamin D. Advised to use calorie counter and adhere to portion control. Monthly goal is to lose 4-6 pounds Pharmacotherapy. Increased Phentermine 30mg. Topamax Increase to 50 mg twice a day. Side effects explained to the patient. Goal [...] interviewing done. Arrange. Follow-up appointment arranged. Counseling. 20 minutes spent Face to face with the patient more than 50% of time was spent counseling General concerns have been discussed I have rendered the services for this patient under direct supervision of Dr. Chacon, who did not see the patient but was available upon request 10/19/2024 Morbid (severe) obesity due to excess calories (ICD-10 - E66.01) 12/19/2024 Morbid (severe) obesity due to excess [...] Meal replacements were recommended. Advised to use [id number] multivitamins and vitamin D. Advised to use [...] Meal replacements were recommended. Advised to use [id number] multivitamins and vitamin D. Advised to use [...] time was spent counseling Plan Of Treatment Next Appt Details Provider Name:TAVO CHACON , 01/18/2025 10:45:00 AM, [address] [place] [address], [phone], Insurance Providers Payer Name Payer Address Payer Phone Subscriber Number Group Number Insured Name Patient Relationship to Insured Coverage Start Date Coverage End Date [facility] [address] [place] [phone] [id number] Jeri Rodriguez Self - patient is the insured 5 Medical (General) History Medical History History ICD Code seasonal allergies asthma Personal history of COVID-19 Surgical History Surgery Date(Month/Year) cholecystectomy
== END 2024-12-21 11:47 | disposition home or self-care (01) ==
LOC: HO.HWSM 14:55
PROVIDERS: PCP Internal Medicine; Visit Provider Advanced Practice Midwife
DX: Z01.419 Encounter for gynecological examination (general) (routine) without abnormal findings (principal); N94.6 Dysmenorrhea, unspecified; N92.0 Excessive and frequent menstruation with regular cycle; Z30.09 Encounter for other general counseling and advice on contraception
CPT/HCPCS: 99385; 99459

== ENCOUNTER 2024-12-20 14:55 | Outpatient (REF) | payer OTHER, SELFPAY | END 2024-12-20 14:56 | disposition home or self-care (01) | LOC: HO.LNP 14:55 | PROVIDERS: PCP Internal Medicine; Visit Provider Advanced Practice Midwife | DX: Z13.89 Encounter for screening for other disorder (principal) ==

== ENCOUNTER 2024-12-21 14:59 | Outpatient (REF) | payer OTHER, SELFPAY ==
--- OUTSIDE RECORDS SUMMARY | 2024-07-24 10:30 | XMS_ITS ---
Author Organization [facility] Address 294 [facility] 202 [place] [address] Care Team Providers Care Spool Cleaner Name Role Phone WILL FULLER Primary Care Provider Unavailab TAVO Lomeli [phone] REASON FOR VISIT WM f/up Encounters Encounter Location Date Provider Diagnosis [facility] [address] [address] 07/24/2024 TAVO CHACON Plan Of Treatment Next Appt Details Provider Name:TAVO CHACON , 01/18/2025 10:45:00 AM, [address] [place] [address] [address], [place], [address], Progress Notes * MICHAELDaniin LDOB: [birth year] (34 yo F)Acc No.[id number]:07/24/2024 Patient: Meliza MODE Jeri Pina Provider: Jillian CHACON MD :1990 A ge:33 Y S ex:Female Date:07/24/2024 [address] [place], [id number] Pcp:WILL FULLER Subjective: * Chief Complaints: * 1 . WM f/up. * Medical History: Objective: * Vitals: Assessment: Plan: * Treatment: * Images: * Electronic signature of MAU CHACON MD on 12/21/2024 at 04:15 PM EST Sign off status: Pending * Provider: Jillian CHACON MD Date: 0 07/24/2024 Generated for Mike bernal/Tish/Clarice on: 1 02/21/2024 04:15 PM EST
--- OUTSIDE RECORDS SUMMARY | 2024-07-25 09:30 | XMS_ITS ---
Author Organization [facility] Address 294 [facility] 202 [place] [address] Care Team Providers Care Physician Industrial Name Role Phone WILL FULLER Primary Care Provider Unavailab Rodney Jean-Baptiste [phone] REASON FOR VISIT WM f/up Encounters Encounter Location Date Provider Diagnosis [facility] 294 [facility] 202 [place] [address] 07/25/2024 Rodney Parker Plan Of Treatment Next Appt Details Provider Name:TAVO CHACON , 01/18/2025 10:45:00 AM, 294 [facility] [address], [place], [address], Progress Notes * MICHAEL Jeri LDOB: [birth year] (34 yo F)Acc No.[id number]:07/25/2024 Patient: Meliza MODE Jeri Pina Appointment Provider: Alexander Parker :1990 A ge:33 Y S ex:Female Date:07/25/2024 Address[address] [place], [place] Pcp:WILL FULLER Subjective: * Chief Complaints: * 1 . WM f/up. * Medical History: Objective: * Vitals: Assessment: Plan: * Treatment: * Images: * Electronic signature of Nelda Parker PA-C on 12/21/2024 at 04:16 PM EST Sign off status: Pending * Appointment Provider: Alexander Parker Date: 0 07/25/2024 Generated for Mike bernal/Tish/Clarice on: 1 02/21/2024 04:16 PM EST
--- OUTSIDE RECORDS SUMMARY | 2024-11-16 06:30 | XMS_ITS ---
Author Organization [facility] Address 294 [facility] 202 [place] [address] Care Team Providers Care Aws Architect Name Role Phone WILL FULLER Primary Care Provider Unavailab Rodney Jean-Baptiste [phone] REASON FOR VISIT WM f/up Encounters Encounter Location Date Provider Diagnosis [facility] [address] [address] 11/16/2024 Rodney Parker Plan Of Treatment Next Appt Details Provider Name:TAVO CHACON , 01/18/2025 10:45:00 AM, 294 [facility] [address], [place], [address], Progress Notes * PIPODaniin LDOB: [birth year] (34 yo F)Acc No.[id number]:11/16/2024 Patient: Meliza MODE Jeri Pina Appointment Provider: Alexander Parker :1990 A ge:34 Y S ex:Female Date:11/16/2024 Address[address] [place], [place] Pcp:WILL FULLER Subjective: * Chief Complaints: * 1 . WM f/up. * Medical History: Objective: * Vitals: Assessment: Plan: * Treatment: * Procedure Codes: N OSHO NO SHOW FEE * Images: * Electronic signature of Nelda Parker PA-C on 12/21/2024 at 04:16 PM EST Sign off status: Pending * Appointment Provider: Alexander Parker Date: 1 Generated for Mike bernal/Tish/Clarice on: 02/21/2024 04:16 PM EST
--- OUTSIDE RECORDS SUMMARY | 2024-12-19 05:30 | XMS_ITS ---
Author Organization [employer] Address [address] [place] [address] [address] [place] [address] Care Team Providers Care Rolling Mill Plugger Name Role Phone DANIELEJohnathon WILL Primary Care Provider Unavailab TAVO Lomeli Unavailable [phone] Allergies No Known Allergies REASON FOR VISIT WM f/up Medications Medication SIG (Take, Route, Frequency, Duration) Notes Start Date End Date Status Triamcinolone (oint)-Silicone Active Cetirizine HCl 10 MG 1 tablet Orally Onc e a day Active Qsymia 7.5-46 MG 1 capsule Orally Onc e a day; Duration: 30 days 08/19/2022 Not-Takin g Albuterol Sulfate 108 (90 Base) MCG/ACT 1 puff as needed Inhalation every 4 hrs Active Topiramate 50 MG 1 tablet Orally Once a day; Duration: 30 days 10/19/2024 Active Zepbound 2.5 MG/0.5ML 0.5 mL Subcutaneou s weekly; Duration: 30 days 06/20/2024 Not-Taking Qsymia 3.75-23 MG 1 capsule Orally Onc e a day; Duration: 14 days 05/31/2022 Not-Takin g Phentermine HCl 15 MG 1 capsule Orally O nce a day; Duration: 30 days 12/19/2024 Active Vital Signs Temperature 97.4 degrees Fahrenheit 12/20/19 25 Blood pressure systolic 110 mm Hg 12/20/19 25 Blood pressure diastolic 80 mm Hg 025 Heart Rate 80 /min 12/19/2024 Height 59 in 12/19/2024 Weight 195.8 lbs 12/19/2024 BMI 39.54 kg/m2 12/19/2024 Oximetry 97 % 12/19/2024 Encounters Encounter Location Date Provider Diagnosis [facility] [address] [place] [address] 12/19/2024 TAVO CHACON Morbid (severe) obesity due to excess calories E66.01 and Dietary counseling and surveillance Z71.3 Assessments Encounter Date Diagnosis (ICD Code) Assessment Notes Treatment Notes Treatment Clinical Notes Section Notes 12/19/2024 Morbid (severe) obesity due to excess calories (ICD-10 - E66.01) Jeri is 34 years old lady who is here for medical weight management. She has lost 2.3 pounds since her last visit Dietary recommendations. Food recall was done today and patient advised to be on low calorie, low carbohydrate diet. Restrict calories to less than 1500 kcal in 24 hours. Low glycemic index foods and encouraged. Meal replacements were recommended. Advised to use cfad-bkt-ungdamg multivitamins and vitamin D. Advised to use calorie counter and adhere to portion control. Monthly goal is to lose 4-6 pounds Pharmacotherapy. Continue on current regimen off phentermine 15 mg and Topamax 50 mg 1 tablet twice a day.. Side effects explained to the patient. Goal is to lose 3-5% of body weight in 3 months. Exercise. Patient encouraged to increase frequency, intensity and duration of exercise. Encouraged to burn at least 250-500 kcal in one session. Also encouraged to do weight training Assess. Different risk factors discussed with the patient and addressed Advise. Patient was given clear And specific advise that she will comply with Low-calorie diet and try not to exceed more than 1300 kcal in 24 hours. Agree. Mutually agreed to work together to achieve appropriate goals Assist. Motivational interviewing done. Arrange. Follow-up appointment arranged. Counseling. 15 minutes spent Face to face with the patient more than 50% of time was spent counseling 12/19/2024 Dietary counseling and surveillance (ICD-10 - Z71.3) Jeri is 34 years old lady who is here for medical weight management. She has lost 2.3 pounds since her last visit Dietary recommendations. Food recall was done today and patient advised to be on low calorie, low carbohydrate diet. Restrict calories to less than 1500 kcal in 24 hours. Low glycemic index foods and encouraged. Meal replacements were recommended. Advised to use uhsx-bzg-kuyuayz multivitamins and vitamin D. Advised to use calorie counter and adhere to portion control. Monthly goal is to lose 4-6 pounds Pharmacotherapy. Continue on current regimen off phentermine 15 mg and Topamax 50 mg 1 tablet twice a day.. Side effects explained to the patient. Goal is to lose 3-5% of body weight in 3 months. Exercise. Patient encouraged to increase frequency, intensity and duration of exercise. Encouraged to burn at least 250-500 kcal in one session. Also encouraged to do weight training Assess. Different risk factors discussed with the patient and addressed Advise. Patient was given clear And specific advise that she will comply with Low-calorie diet and try not to exceed more than 1300 kcal in 24 hours. Agree. Mutually agreed to work together to achieve appropriate goals Assist. Motivational interviewing done. Arrange. Follow-up appointment arranged. Counseling. 15 minutes spent Face to face with the patient more than 50% of time was spent counseling Plan Of Treatment Medication Medication Name Sig Start Date Stop Date Notes Topiramate 50 MG 1 tablet Orally Once a day; Duration: 30 days 10/19/2024 Phentermine HCl 15 MG 1 capsule Orally O nce a day; Duration: 30 days 12/19/2024 Next Appt Details Follow Up: 4 Weeks, Reason: Provider Name:TAVO CHACON , 01/18/2025 10:45:00 AM, [address] [place] [address], [id number], Progress Notes * Jeri RODRIGUEZ LDOB: [birth year] (34 yo F)Acc No.[id number]:12/19/2024 Patient: Jeri HAIR Provider: Jillian CHACON MD :1990 A ge:34 Y S ex:Female Date:12/19/2024 Address:[address] [place] [address] [id number] Pcp:WILL FULLER Subjective: * Chief Complaints: * W M f/up * HPI: F /U Obesity: 34 year old female presents with c/o Patient is here for f/u on weight management. Patient has lost weight s he lost 2.3 lbs since the last visit. patient is on Meal replacement t steven to be compliant with low calorie diet, she keeps getting hungry. Patient is exercising n ot regular. frequency of exercise _ ____. patient on pharmacotherapy p hentermine 15mg Topiramate 25 mg twice a day. tolerating medication _ ____. Sleep pattern Good. * ROS: G eneral/Constitutional: Overall health G ood. C hange in appetite d enies.?Chills d enies. F ever d enies. N ight sweats d enies. S leep disturbance d enies. W eight gain d enies. W eight loss d enies. N eurologic: Difficulty speaking d enies. D izziness d enies.?Gait abnormality d enies. H eadache d enies. L oss of strength d enies. M siomara loss d enies. S eizures d enies. T ingling/Numbness d enies . O phthalmologic: Blurred vision d enies. D ischarge d enies. D ry eye d enies. R ed eye d enies. E NT: Change in Voice D enies. C old Symptoms D enies.?Cough D enies. D izziness D enies. N meron Congestion D enies. O talgia?Denies. N osebleed d enies. S noring d enies. C ardiovascular: Diaphoresis D enies. P edal Edema D enies. P ND (Paroxsymal nocturnal dyspnea) D enies. C hest pain d enies. D ifficulty laying flat d enies. D yspnea on exertion d enies. H eart murmur d enies. O rthopnea?denies. R espiratory: Snoring d enies. A sthma d enies. C ough d enies. S hortness of breath with exertion d enies. S putum production d enies. W heezing d enies. G astrointestinal: Change in bowel habits d enies. C onstipation d enies. D ecreased appetite d enies. D iarrhea d enies. H eartburn d enies. N ausea d enies. V omiting d enies. M usculoskeletal: tingling/numbness D enies. m yalgias D enies. J oint Swelling D enies. e xtremeties n ormal. A rthritis d enies. B ack problems d enies. C arpal tunnel d enies. J oint stiffness d enies. M uscle aches d enies. E ndocrine: Bowel Changes D enies. B reast Discharge D enies.?poor libido D enies. C old intolerance d enies. E xcessive sweating d enies.?Excessive thirst d enies. F requent urination d enies. T hyroid problems d enies. S kin: Bruising D enies. E czema d enies. H air changes d enies. R anup d enies. S kin lesion(s) d enies. P sychiatric: Anxiety d enies. D epressed mood d enies. D ifficulty sleeping d enies. N ervous breakdown d enies. S ubstance abuse d enies.? U rology: abnormal menstrual bleeding d enies. b lood in urine?denies. b urning on urination d enies. d ifficulty urinating d enies. d ischarge d enies. d ysuria d enies. * Medical History: * Medications: T akingAlbuterol Sulfate 108 (90 Base) MCG/ACT Aerosol Powder Breath Activated 1 puff as needed Inhalation every 4 hrs Triamcinolone (oint)-Silicone Cetirizine HCl 10 MG Tablet 1 tablet Orally Once a day Phentermine HCl 15 MG Capsule 1 capsule Orally Once a day Topiramate 50 MG Tablet 1 tablet Orally Once a day Taking Albuterol Sulfate 108 (90 Base) MCG/ACT Aerosol Powder Breath Activated 1 puff as needed Inhalation every 4 hrs Taking Triamcinolone (oint)-Silicone Taking Cetirizine HCl 10 MG Tablet 1 tablet Orally Once a day Taking Phentermine HCl 15 MG Capsule 1 capsule Orally Once a day Taking Topiramate 50 MG Tablet 1 tablet Orally Once a day Not-TakingZepbound 2.5 MG/0.5ML Solution 0.5 mL Subcutaneous weekly Qsymia 3.75-23 MG Capsule Extended Release 24 Hour 1 capsule Orally Once a day Qsymia 7.5-46 MG Capsule Extended Release 24 Hour 1 capsule Orally Once a day Medication List reviewed and reconciled with the patientNot-Taking Zepbound 2.5 MG/0.5ML Solution 0.5 mL Subcutaneous weekly Not-Taking Qsymia 3.75-23 MG Capsule Extended Release 24 Hour 1 capsule Orally Once a day Not-Taking Qsymia 7.5-46 MG Capsule Extended Release 24 Hour 1 capsule Orally Once a day Medication List reviewed and reconciled with the patient * Allergies: N .K.D.A.no[Allergies Verified] Objective: * Vitals: T emp:97.4F, Oxygen sat %:97%, HR:80/min, BP:110/80mm Hg, Wt:195.8lbs, BMI:39.54Index, Ht: 59 in. * Examination: G eneral Examination: GENERAL APPEARANCE: w ell developed, well nourished, in no acute distress. HEAD: n ormocephalic, atraumatic. EYES: p upils equal, round, reactive to light and accommodation, sclera non-icteric. EARS: n ormal. ORAL CAVITY: m ucosa moist. THROAT: c lear. OROPHARYNX N ormal. SINUSES N ormal. NECK/THYROID: n myles supple, full range of motion, no cervical lymphadenopathy. SKIN: w arm and dry, no suspicious lesions. HEART: r egular rate and rhythm, S1, S2 normal, , n o murmurs. LUNGS: c lear to auscultation bilaterally. ABDOMEN: s oft, nontender, nondistended, bowel sounds present, normal. EXTREMITIES: _ . PERIPHERAL PULSES: _ . NEUROLOGIC: n onfocal, motor strength normal upper and lower extremities, sensory exam intact. Psychiatry N ormal. PODIATRIC: N ORMAL , B ILATERALLY. ? Assessment: * Assessment: 1. M orbid (severe) obesity due to excess calories - E66.01 (Primary) 2 . D ietary counseling and surveillance - Z71.3 Jeri is 34 years old lady who is here for medical weight management. She has lost 2.3 pounds since her last visit Dietary recommendations. Food recall was done today and patient advised to be on low calorie, low carbohydrate diet. Restrict calories to less than 1500 kcal in 24 hours. Low glycemic index foods and encouraged. Meal replacements were recommended. Advised to use ghxk-wcd-zpyzkbk multivitamins and vitamin D. Advised to use calorie counter and adhere to portion control. Monthly goal is to lose 4-6 pounds Pharmacotherapy. Continue on current regimen off phentermine 15 mg and Topamax 50 mg 1 tablet twice a day.. Side effects explained to the patient. Goal is to lose 3- 5% of body weight in 3 months. Exercise. Patient encouraged to increase frequency, intensity and duration of exercise. Encouraged to burn at least 250-500 kcal in one session. Also encouraged to do weight training Assess. Different risk factors discussed with the patient and addressed Advise. Patient was given clear And specific advise that she will comply with Low-calorie diet and try not to exceed more than 1300 kcal in 24 hours. Agree. Mutually agreed to work together to achieve appropriate goals Assist. Motivational interviewing done. Arrange. Follow-up appointment arranged. Counseling. 15 minutes spent Face to face with the patient more than 50% of time was spent counseling Plan: * Treatment: * Procedure Codes: 3 079F DIAST BP 80-89 MM [id number] SYST BP LT 130 MM HG * Follow Up: 4 Weeks * Images: * Sign off status: Completed true * Provider: Jillian CHACON MD Date: 02/19/2024 Generated for Mike bernal/Tish/Pepperitting on: 02/21/2024 04:15 PM EST History and Physical Notes * HPI (History of Present Illness) Category Sub-Category Detail Notes Category Not es F/U Obesity Patient is here for f/u on weight managem ent Patient has lost weight she lost 2.3 lbs since the last visit patient is on Meal replacement trying to be compliant with low calorie diet, she keeps getting hungry Patient is exercising not regular frequency of exercise patient on pharmacotherapy phentermine 1 5mg Topiramate 25 mg twice a day tolerating medication Sleep pattern Good Examination Category Sub-Category Detail Notes Category Not es General Examination GENERAL APPEARANCE: well dev eloped, well nourished, in no acute distress HEAD: normocephalic, atrau matic EYES: pupils equal, round, reactive to light and accommodation, sclera non-icteric EARS: normal THROAT: clear NECK/THYROID: neck supple, full ra nge of motion, no cervical lymphadenopathy HEART: regular rate and rhy thm, S1, S2 normal, , no murmurs LUNGS: clear to auscultatio n bilaterally ABDOMEN: soft, nontender, non distended, bowel sounds present, normal NEUROLOGIC: nonfocal, motor stre ngth normal upper and lower extremities, sensory exam intact SKIN: warm and dry, no julian picious lesions EXTREMITIES: PERIPHERAL PULSES: ORAL CAVITY: mucosa moist PODIATRIC: NORMAL , BILATERALLY Psychiatry Normal OROPHARYNX Normal SINUSES Normal
--- OUTSIDE RECORDS SUMMARY | 2024-12-21 16:16 | XMS_ITS | Clinical Summary ---
Author Organization [address] [place] [address] [place] [phone] Phone Care Team Providers Care Irrigation Flume Layer Name Role Phone Judy Turner MD Primary Care Provider [phone] Surgical History Surgery Date Site/Laterality Comments COLPOSCOPY 2010 and 2016 PROCEDURE: HI COLPOSCOPY ENTIRE VAGINA W/VAGINA/CERVIX BX; COMMENT: CIN1 [...] and 08/2016 Major depression in remissio n ([facility] V24) 11/15/2015 DX:Major depression in remis isabell ([facility]) Marijuana use 04/26/2018 DX:Marijuana use STD exposure [...] C antibody (10/22/2024 2:49 PM EDT) Pathologist [facility] Hepatitis C Antibody Negative Negative LAB CHEMISTRY METHOD 10/22/2024 8:53 PM EDT [facility] Blood Venous blood specimen / Unknown Venipuncture / Unknown 10/22/2024 2:49 PM EDT 10/22/2024 2:49 PM EDT us Iverson Wren PHARMACY BENEFITS COORDINATOR LAB BLOOD ORDERABLES Final Resul t [facility] [address] [place] [address], [place] [phone] * HIV 1,2 antibody, p24 antigen with reflex to differentiation (10/22/2024 2:49 PM EDT) Pathologist [facility] HIV Combo AB/AG Negative Negative LAB CHEMISTRY METHOD 10/22/2024 8:54 PM EDT [facility] Blood Venous blood specimen / Unknown Venipuncture / Unknown 10/22/2024 2:49 PM EDT 10/22/2024 2:49 PM EDT Narrative [facility] - 10/22/2024 8:54 PM EDT This assay is a 4th generation assay allowing for earlier detection of HIV infection by detecting the presence of the HIV-1 p24 antigen as well as the traditional antibodies to HIV type 1 (including group O) and type 2. Use of a 4th generation assay is the current CDC recommendation for HIV screening. us Iverson Wren PHARMACY BENEFITS COORDINATOR LAB BLOOD ORDERABLES Final Resul t [facility] [address] [place] [address], [place] [phone] * (ABNORMAL) Urinalysis with reflex microscopic (10/22/2024 2:49 PM EDT) Specific [place] Urine 1.026 1.003 - 1.030 LAB URINALYSIS - AUTOMATED METHOD [facility], Urine 6.0 5.0 - 8.0 pH LAB URINALYSIS - AUTOMATED METHOD 10/22/2024 8[facility] Leukocytes, Urine Small(A) Negative LAB URINALYSIS - AUTOMATED METHOD 10/22/2024 8:14 PM [facility] Nitrite, Urine Negative Negative LAB URINALYSIS - AUTOMATED METHOD 10/22/2024 8:14 PM [facility] Protein, Urine Negative <=Trace mg/dL LAB URINALYSIS - AUTOMATED METHOD 10/22/2024 8:14 PM EDT [facility] Glucose, Urine Negative Negative mg/dL LAB URINALYSIS - AUTOMATED METHOD 10/22/2024 8:14 PM [facility] Ketones, Urine Negative Negative mg/dL LAB URINALYSIS - AUTOMATED METHOD 10/22/2024 8:14 PM [facility] Urobilinogen, Urine 0.2 0.2 - 1.0 mg/dL LAB URINALYSIS - AUTOMATED METHOD 10/22/2024 8:14 PM EDT [facility] Bilirubin, Urine Negative Negative LAB URINALYSIS - AUTOMATED METHOD 10/22/2024 8:14 PM EDT [facility] Blood, Urine Negative Negative LAB URINALYSIS - AUTOMATED METHOD 10/22/2024 8:[facility] RBC, Urine 2.0 0 - 4 /HPF LAB URINALYSIS - AUTOMATED METHOD 10/22/2024 8:14 PM EDT [facility] WBC, Urine 10.1(H) 0 - 4 /HPF LAB URINALYSIS - AUTOMATED METHOD 10/22/2024 8:[facility] Squamous Epithelial, Urine >100(H) 0 - 60 /LPF LAB URINALYSIS - AUTOMATED METHOD 10/22/2024 8:14 PM [facility] Bacteria, Urine Few(A) Negative /HPF LAB URINALYSIS - AUTOMATED METHOD 10/22/2024 8:14 [facility] Hyaline Casts, Urine 2.4 0 - 3 /LPF LAB URINALYSIS - AUTOMATED METHOD 10/22/2024 8:14 PM [facility] Urine Urine specimen obtained by clean catch procedure / Unknown Non-blood Collection / Unknown 10/22/2024 2:49 PM EDT 10/22/2024 2:49 PM EDT us Iverson Wren PHARMACY BENEFITS COORDINATOR LAB URINE ORDERABLES Final Resul t [facility] [address] [place] [address], * Treponema pallidum antibody with reflex to RPR and particle agglutination (10/22/2024 2:49 PM EDT) T. Pallidum Antibodies Negative Negative LAB CHEMISTRY METHOD 10/22/2024 10:07 PM EDT [facility] Blood Venous blood specimen / Unknown Venipuncture / Unknown 10/22/2024 2:49 PM EDT 10/22/2024 2:49 PM EDT [facility] PHARMACY BENEFITS COORDINATOR LAB BLOOD ORDERABLES Final Resul t Performing Organization Address [facility]/ZIP Co de Phone Number [facility] [address] [place] [address], [place] [phone] * (ABNORMAL) Herpes simplex virus 1 and 2, IgG (10/22/2024 2:49 PM EDT) Pathologist [facility] HSV 1 IgG 45.80(H) <=0.90 index cr LAB CHEMISTRY METHOD 10/23/2024 8:57 AM EDT [facility] HSV-1 IgG Interpretation Positive(A) Negative LAB CHEMISTRY METHOD 10/23/2024 8:57 AM EDT [facility] HSV 2 IgG 0.35 <=0.90 index cr LAB CHEMISTRY METHOD 10/23/2024 8:57 AM EDT [facility] HSV-2 IgG Interpretation Negative Negative LAB CHEMISTRY METHOD 10/23/2024 8:57 AM EDT [facility] Blood Venous blood specimen / Unknown Venipuncture / Unknown 10/22/2024 2:49 PM EDT 10/22/2024 2:49 PM EDT Iverson Wren PHARMACY BENEFITS COORDINATOR LAB BLOOD ORDERABLES Final Resul t Performing Organization Address City/[facility]/ZIP Co de Phone Number [facility] [address] [place] [address], [place] [phone] * (ABNORMAL) Hepatitis B screening panel (10/22/2024 2:49 PM EDT) Hepatitis B Surface Ag Negative Negative LAB CHEMISTRY METHOD 10/22/2024 8:54 PM EDT [facility] Hep B Core Total Ab Negative Negative LAB CHEMISTRY METHOD 10/22/2024 8:54 PM EDT [facility] Hepatitis B Surface Ab Positive(A) Negative LAB CHEMISTRY METHOD 10/22/2024 8:54 PM EDT [facility] Blood Venous blood specimen / Unknown Venipuncture / Unknown 10/22/2024 2:49 PM EDT 10/22/2024 2:49 PM EDT us Iverson Wren PHARMACY BENEFITS COORDINATOR LAB BLOOD ORDERABLES Final Resul t Performing Organization Address City/[facility]/ZIP Co de Phone Number [facility] [address] [place] [address], * (ABNORMAL) Vaginitis pathogens molecular study (10/22/2024 2:49 PM EDT) [facility] Trichomonas vaginalis Negative Negative 10/23/2024 11:15 AM EDT [facility] Gardnerella vaginalis Positive(A) Negative 10/23/2024 11:15 AM EDT [facility] Molly Species Positive(A) Negative 10/24/19 11:15 AM EDT [facility] Swab Vaginal structure / Unknown Non-blood Collection / Unknown 10/22/2024 2:49 PM EDT 10/22/2024 2:49 PM EDT us Iverson Wren PHARMACY BENEFITS COORDINATOR LAB MICROBIOLOGY - GENERAL ORDER THANG Final Result [facility] [address] [place] [address], [place] [phone] * Hepatitis C virus quantitative molecular study (10/22/2024 2:49 PM EDT) Pathologist [facility] HCV Qual Interp Not Detected Not Detected LAB MOLECULAR DIAGNOSTICS METHOD 10/23/2024 10:13 AM EDT [facility] Comment:HCV RNA not detected , unable to report quantitative results. Blood Venous blood specimen / Unknown Venipuncture / Unknown 10/22/2024 2:49 PM EDT 10/22/2024 2:49 PM EDT Iverson Wren LAB BLOOD ORDERABLES Final Resul t [facility] [address] [place] [address], [place] [phone] * Chlamydia trachomatis and Neisseria gonorrhoeae molecular study (10/22/2024 2:49 PM EDT) Pathologist [facility] Neisseria gonorrhoeae PCR Negative Negative LAB MOLECULAR DIAGNOSTICS METHOD 10/23/2024 11:05 AM EDT [facility] Chlamydia trachomatis PCR Negative Negative LAB MOLECULAR DIAGNOSTICS METHOD 10/23/2024 11:05 AM EDT [facility] Swab Urine specimen from urethra / Unknown Non-blood Collection / Unknown 10/22/2024 2:49 PM EDT 10/22/2024 2:49 PM EDT [facility] LAB MICROBIOLOGY - GENERAL ORDER THANG Final Result Performing Organization Address [facility]/ZIP Co de Phone Number [facility] [address] [place] [address], [place] [phone] * Culture urine (10/22/2024 2:49 PM EDT) Pathologist [facility] Culture, Urine No growth 10/23/2024 1:44 PM EDT [facility] Urine Urine specimen from urethra / Unknown Non-blood Collection / Unknown 10/22/2024 2:49 PM EDT 10/22/2024 2:49 PM EDT Iverson Wren LAB MICROBIOLOGY - GENERAL ORDER THANG Final Result Performing Organization Address City/[facility]/ZIP Co de Phone Number [facility] [address] [place] [address], [place] [phone] * (ABNORMAL) Lipid panel with reflex to direct LDL (06/01/2024 2:17 PM EDT) Cholesterol 186 0 - 200 mg/dL LAB CHEMISTRY METHOD 06/01/2024 7:59 PM EDT [facility] Triglycerides 179(H) 0 - 150 mg/dL LAB CHEMISTRY METHOD 06/01/2024 7:59 PM EDT [facility] HDL 48 >=40 mg/dL LAB CHEMISTRY METHOD 06/01/2024 7:59 PM EDT [facility] LDL Calculated 102(H) 0 - 100 mg/dL LAB CHEMISTRY METHOD 06/01/2024 7:59 PM EDT [facility] VLDL Cholesterol Murali 35.8 mg/dL LAB CHEMISTRY METHOD 06/01/2024 7:59 PM EDT [facility] Non HDL Chol. (LDL+VLDL) 138 <145 mg/dL LAB CHEMISTRY METHOD 06/01/2024 7:59 PM EDT [facility] Chol/HDL Ratio 3.9 0.0 - 4.4 LAB CHEMISTRY METHOD 06/01/2024 7:59 PM EDT [facility] Blood Venous blood specimen / Unknown Venipuncture / Unknown 06/01/2024 2:17 PM EDT 06/01/2024 2:18 PM EDT us Iverson Wren PHARMACY BENEFITS COORDINATOR LAB BLOOD ORDERABLES Final Resul t [facility] [address] [place] [address], [place] [phone] * Pap smear (05/23/2018) 05/23/2018 Narrative HISTORICAL TESTING LAB RESULTING AGENCY - 06/01/2018 11:12 AM EDT [id number] THINPREP PAP, IMAGED: ATYPICAL SQUAMOUS CELLS OF [...] Last Indicated Herpes simplex 10/22/2024 10/22/2024 Insurance [facility] [place]ICA[place] - [place] [facility] Care Teams Irrigation Flume Layer Relationship Specialty Start Date End Date Judy Turner MD [address] [place] [phone] PCP - General Internal Medicine 08/28/21
--- OUTSIDE RECORDS SUMMARY | 2024-12-21 16:16 | XMS_ITS | Encounter Summary ---
Author Organization [facility] Address [address] [place] [address] Care Team Providers Care Supervisor Leaf [employer] Repair Name Role Phone Yue Judy Ribera MD Primary Care Provider [phone] Encounter Details Date Type Department Care Team (Latest Contact Info) Description 09/13/2024 Lab Requisition [facility] - Main Lab [address] [facility] [place] [address] [facility] [address] [place] [address] Urinary tract infection, site not specified; Hematuria, [...] vaginalis Negative Negative 09/14/2024 10:36 AM EDT [facility] Gardnerella vaginalis Positive(A) Negative 09/14/2024 10:36 AM EDT [facility] Molly Species Negative Negative 10:36 AM EDT [facility] Swab Vaginal structure / Unknown 09/13/2024 09/13/2024 7:32 PM EDT [facility] MICROBIOLOGY - GENERAL ORDER THANG Final Result [facility] [address] [place] [address], * Chlamydia trachomatis and Neisseria gonorrhoeae molecular study (09/13/2024 12:00 AM EDT) Neisseria gonorrhoeae PCR Negative Negative LAB MOLECULAR DIAGNOSTICS METHOD 09/14/2024 9:36 AM EDT [facility] Chlamydia trachomatis PCR Negative Negative LAB MOLECULAR DIAGNOSTICS METHOD 09/14/2024 9:36 AM EDT [facility] Urine Cervix uteri structure / Unknown 09/13/2024 09/13/2024 7:32 PM EDT [facility] MICROBIOLOGY - GENERAL ORDER THANG Final Result [facility] [address] [place] [address], [place] [phone] * (ABNORMAL) Urinalysis with reflex microscopic (09/13/2024 12:00 AM EDT) Pathologist [facility] Specific [place] Urine 1.024 1.003 - 1.030 LAB URINALYSIS - AUTOMATED METHOD 09/13/2024 [facility] pH, Urine 6.0 5.0 - 8.0 pH LAB URINALYSIS - AUTOMATED METHOD 09/13/2024 8:03 PM [facility] Leukocytes, Urine Negative Negative LAB URINALYSIS - AUTOMATED METHOD 09/13/2024 8:03 PM [facility] Nitrite, Urine Negative Negative LAB URINALYSIS - AUTOMATED METHOD 09/13/2024 8:03 PM [facility] Protein, Urine Negative <=Trace mg/dL LAB URINALYSIS - AUTOMATED METHOD 09/13/2024 8:03 PM [facility] Glucose, Urine Negative Negative mg/dL LAB URINALYSIS - AUTOMATED METHOD 09/13/2024 8:03 PM [facility] Ketones, Urine Trace(A) Negative mg/dL LAB URINALYSIS - AUTOMATED METHOD 09/13/2024 8:03 PM [facility] Urobilinogen, Urine 1.0 0.2 - 1.0 mg/dL LAB URINALYSIS - AUTOMATED METHOD 09/13/2024 8:03 PM [facility] Bilirubin, Urine Negative Negative LAB URINALYSIS - AUTOMATED METHOD 09/13/2024 8:03 PM [facility] Blood, Urine Negative Negative LAB URINALYSIS - AUTOMATED METHOD 09/13/2024 8:03 PM EDT [facility] Urine Urine specimen obtained by clean catch procedure / Unknown 09/13/2024 09/13/2024 7:32 PM EDT [facility] URINE ORDERABLES Final Resul t Performing Organization Address [facility]/ZIP Co de Phone Number [facility] [address] [place] [address], [place] [phone] * Culture urine (09/13/2024 12:00 AM EDT) Culture, Urine No growth 09/14/2024 1:58 PM EDT [facility] Urine Urine specimen obtained by clean catch procedure / Unknown 09/13/2024 09/13/2024 7:32 PM EDT [facility] MICROBIOLOGY - GENERAL ORDER THANG Final Result Performing Organization Address [facility] Co de Phone Number [facility] [address] [place] [address], [place] [phone] documented in this encounter Visit Diagnoses Diagnosis Urinary tract infection, site not specified Hematuria, unspecified Other specified noninflammatory disorders of vagina documented in this encounter Additional Health Concerns Infection Onset Date Last Indicated Resolved Time Herpes simplex 10/22/2024 10/22/2024 documented as of this encounter Care Teams Supervisor Leaf [employer] Rep[employer] Relationship Specialty Start Date End Date Judy Turner MD [address] [place] [phone] PCP - General Internal Medicine 08/28/21 documented as of this encounter
--- OUTSIDE RECORDS SUMMARY | 2024-12-21 16:16 | XMS_ITS | Patient Health Record ---
[facility] Organization [facility] Address [address] [place] [address] Care Team Providers Care Shoemaker Apprentice Name Role Phone WILL FULLER Primary Care Provider Unavailab RONNELL LomeliHAMMAD Unavailable [phone] JasealeksandarRodney whittaker Unavailable [phone] Allergies No Known Allergies Results Component Value Reference Range Notes VAGINITIS PATHOGENS MOLECULA R STUDY Reviewed date:09/14/2024 [...] 07:53:02 AM Interpretation: Performing Lab: Notes/Report: Specific [place] Urine 1.024 1.003-1.030 pH, Urine 6.0 5.0-8.0 pH Leukocytes, Urine Negative Negative Nitrite, Urine Negative Negative Protein, Urine Negative <=Trace mg/dL Glucose, Urine Negative Negative mg/dL Ketones, Urine Trace Negative mg/dL Urobilinogen, Urine 1.0 0.2-1.0 mg/dL Bilirubin, Urine Negative Negative Blood, Urine Negative Negative HERPES SIMPLEX VIRUS 1 AND 2 , IGG Reviewed date:10/23/2024 12:24:36 PM Interpretation: Performing Lab: Notes/Report: HSV 1 IgG 45.80 <=0.90 index cr HSV-1 IgG Interpretation Positive Negative HSV 2 IgG 0.35 <=0.90 index cr HSV-2 IgG Interpretation Negative Negative TREPONEMA PALLIDUM ANTIBODY WITH REFLEX TO RPR AND PARTICLE AGGLUTINATION Reviewed date:10/23/2024 08:01:30 AM Interpretation: Performing Lab: Notes/Report: T. Pallidum Antibodies Negative Negative THYROID STIMULATING HORMONE Reviewed date:06/03/2024 07:18:44 AM [...] 138 <145 mg/dL Chol/HDL Ratio 3.9 0.0-4.4 BILIRUBIN DUPLICATE PROCEDUR E TO ORDER Reviewed date:05/16/2024 07:47:51 AM Interpretation: Performing Lab: Notes/Report: Total Bilirubin 0.5 0.0-1.4 mg/dL Bilirubin, Direct 0.2 0.0-0.3 mg/dL Bilirubin, Indirect 0.3 0.0-1.1 mg/dL C-REACTIVE PROTEIN Reviewed date:05/16/2024 07:47:57 AM Interpretation: Performing Lab: Notes/Report: C-Reactive Protein <0.29 <=0.50 mg/dL COMPREHENSIVE METABOLIC PANE L Reviewed date:05/16/2024 07:49:17 [...] 3.2-5.0 g/dL Total Bilirubin 0.5 0.0-1.4 mg/dL URINALYSIS WITH REFLEX MICRO SCOPIC Reviewed date:05/16/2024 07:46:29 AM Interpretation: Performing Lab: Notes/Report: Specific [place] Urine 1.026 1.003-1.030 pH, Urine 5.0 5.0-8.0 pH Leukocytes, Urine Negative Negative Nitrite, Urine Negative Negative Protein, Urine Negative <=Trace mg/dL Glucose, Urine Negative Negative mg/dL Ketones, Urine Trace Negative mg/dL Urobilinogen, Urine 0.2 0.2-1.0 mg/dL Bilirubin, Urine Negative Negative Blood, Urine Negative Negative VAGINITIS PATHOGENS MOLECULA R STUDY [...] 12:24:43 PM Interpretation: Performing Lab: Notes/Report: Specific [place] Urine 1.026 1.003-1.030 pH, Urine 6.0 5.0-8.0 [...] /HPF Hyaline Casts, Urine 2.4 0-3 /LPF GASTROINTESTINAL PATHOGENS M OLECULAR STUDY Reviewed date:05/21/2024 11:51:59 AM Interpretation: Performing [...] Detection by PCR Not Detected Not Detected SEDIMENTATION RATE Reviewed date:05/15/2024 05:17:50 PM Interpretation: Performing Lab: Notes/Report: Sed Rate 6 0-20 mm/hr CULTURE URINE Reviewed date:05/17/2024 03:42:55 PM Interpretation: Performing Lab: Notes/Report: Culture, Urine 10,000-49,000 CFU/mL Mixed urogenital shan, no uropathogens present. Suggest repeat specimen if clinically indicated. CBC WITH AUTO DIFFERENTIAL Reviewed date:05/15/2024 05:18:26 [...] K/mcL Immature Granulocytes Absolute 0.08 0.00-0.03 K/mcL Reason For Referral No Information Medications Medication [...] Status Risk Notes Problem Morbid obesity (disorder) (335115697) Morbid (severe) obesity due to excess calories (E66.01) Active confirmed Problem Cannabis abuse (01046429) Cannabis abuse, uncomplicated (F12.10) Active confirmed Problem Tobacco user (564238172) Nicotine dependence, cigarettes, uncomplicated (F17.210) Active confirmed Problem Mild intermittent asthma (826045816) Mild intermittent asthma, uncomplicated (J45.20) Active confirmed Vital Signs Heart Rate 80 /min 12/19/2024 Temperature 97.4 degrees Fahrenheit 12/19/2024 Blood pressure diastolic 80 mm Hg 12/19/2024 Oximetry 97 % 12/19/2024 Height 59 in 12/19/2024 Blood pressure systolic 110 mm Hg 12/19/2024 Weight 195.8 lbs 12/19/2024 BMI 39.54 kg/m2 12/19/2024 Encounters Encounter Location Date Provider Diagnosis [facility] [address] [place] [address] 11/16/2024 Ghadeer Mazloum [facility] [address] [place] [address] 06/19/2024 VO GUL Morbid (severe) obesity due to excess calories E66.01 and Dietary counseling and surveillance Z71.3 [facility] [address] [place] [address] 08/01/2024 Ghadeer Mazloum Morbid (severe) obesity due to excess calories E66.01 and Dietary counseling and surveillance Z71.3 [facility] [address] [place] [address] 08/30/[address] [place] [address] 09/06/2024 Ghadeer Mazloum Morbid (severe) obesity due to excess calories E66.01 and Dietary counseling and surveillance Z71.3 [facility] [address] [place] [address] 10/19/2024 Ghadeer Mazloum Morbid (severe) obesity due to excess calories E66.01 and Dietary counseling and surveillance Z71.3 [facility] [address] [place] [address] 12/19/2024 VO GUL Morbid (severe) obesity due to excess calories E66.01 and Dietary counseling and surveillance Z71.[address] [place] [address] 06/20/2024 [facility] [address] [place] [address] 06/20/[address] [place] [address] 06/25/[address] [place] [address] 07/25/[address] [place] [address] 08/30/[address] [place] [address] 09/04/[address] [place] [address] 09/10/[address] [place] [address] 10/19/[address] [place] [address] 10/19/20[facility] Morbid (severe) obesity due to excess calories E66.[address] [place] [address] 10/24/[address] [place] [address] 11/19/2024 Rodney Parker Assessments Encounter Date Diagnosis [...] Meal replacements were recommended. Advised to use ugta-qgk-tbfygms multivitamins and vitamin D. Advised to use [...] Meal replacements were recommended. Advised to use bklr-cff-zokcvxo multivitamins and vitamin D. Advised to use [...] Meal replacements were recommended. Advised to use dkjt-vnc-efdabae multivitamins and vitamin D. Advised to use [...] Meal replacements were recommended. Advised to use kzub-ywa-ngppeoa multivitamins and vitamin D. Advised to use [...] Meal replacements were recommended. Advised to use zdmw-yao-dpdxyap multivitamins and vitamin D. Advised to use [...] Meal replacements were recommended. Advised to use gjjr-sot-fqcotne multivitamins and vitamin D. Advised to use [...] Meal replacements were recommended. Advised to use biap-ymf-dmhzuim multivitamins and vitamin D. Advised to use [...] Meal replacements were recommended. Advised to use vlvy-dxe-oqgiett multivitamins and vitamin D. Advised to use [...] Meal replacements were recommended. Advised to use bsba-etj-rmzckyb multivitamins and vitamin D. Advised to use [...] Meal replacements were recommended. Advised to use omrd-scj-uctlzgo multivitamins and vitamin D. Advised to use [...] Provider Name:TAVO CHACON , 01/18/2025 10:45:00 AM, [address] [place] [address], [phone], Insurance Providers Payer Name Payer Address Payer Phone Subscriber Number Group Number Insured Name Patient Relationship to Insured Coverage Start Date Coverage End Date [facility] [address] [place] [phone] [id number] Jeri Rodriguez Self - patient is the insured 5 Medical (General) History Medical History History ICD Code seasonal allergies asthma Personal history of COVID-19 Surgical History Surgery Date(Month/Year) cholecystectomy
== END 2024-12-21 15:00 | disposition home or self-care (01) ==
LOC: HO.LNP 14:59
PROVIDERS: Visit Provider Advanced Practice Midwife
DX: Z13.89 Encounter for screening for other disorder (principal)

== ENCOUNTER 2024-12-25 09:27 | Outpatient (AMB) | payer OTHER, SELFPAY ==
--- OUTSIDE RECORDS SUMMARY | 2024-07-24 10:30 | XMS_ITS ---
Author Organization [facility] Address [address] [address] Care Team Providers Care Health Occupations Instructor Name Role Phone WILL FULLER Primary Care Provider Unavailab TAVO Lomeli [phone] REASON FOR VISIT WM f/up Encounters Encounter Location Date Provider Diagnosis [facility] [address] [address] 07/24/2024 TAVO CHACON Plan Of Treatment Next Appt Details Provider Name:TAVO CHACON , 01/18/2025 10:45:00 AM, [address] [place] [address] [address], [place], [address], Progress Notes * MICHAELDaniin LDOB: [birth year] (34 yo F)Acc No.[id number]:07/24/2024 Patient: Meliza MODE Jeri Pina Provider: Jillian CHACON MD :1990 A ge:33 Y S ex:Female Date:07/24/2024 [address] [id number] Pcp:WILL FULLER Subjective: * Chief Complaints: * 1 . WM f/up. * Medical History: Objective: * Vitals: Assessment: Plan: * Treatment: * Images: * Electronic signature of MAU CHACON MD on 12/25/2024 at 10:17 AM EST Sign off status: Pending * Provider: Jillian CHACON MD Date: 0 07/24/2024 Generated for Mike bernal/Tish/Clarice on: 1 02/25/2024 10:17 AM EST
--- OUTSIDE RECORDS SUMMARY | 2024-07-25 09:30 | XMS_ITS ---
Author Organization [facility] Address 294 [facility] 202 [place] [address] Care Team Providers Care Clinical Leader Name Role Phone WILL FULLER Primary Care Provider Unavailab Rodney Jean-Baptiste [phone] REASON FOR VISIT WM f/up Encounters Encounter Location Date Provider Diagnosis [facility] 294 [facility] 202 [place] [address] 07/25/2024 Rodney Parker Plan Of Treatment Next Appt Details Provider Name:TAVO CHACON , 01/18/2025 10:45:00 AM, [address] [facility] [address], [place], [address], Progress Notes * MICHAEL Jeri LDOB: [birth year] (34 yo F)Acc No.[id number]:07/25/2024 Patient: Meliza MODE Jeri Pina Appointment Provider: Alexander Parker :1990 A ge:33 Y S ex:Female Date:07/25/2024 Address[address] [place], [id number] Pcp:WILL FULLER Subjective: * Chief Complaints: * 1 . WM f/up. * Medical History: Objective: * Vitals: Assessment: Plan: * Treatment: * Images: * Electronic signature of Nelda Parker PA-C on 12/25/2024 at 10:17 AM EST Sign off status: Pending * Appointment Provider: Alexander Parker Date: 0 07/25/2024 Generated for Mike bernal/Tish/Clarice on: 1 02/25/2024 10:17 AM EST
--- OUTSIDE RECORDS SUMMARY | 2024-11-16 06:30 | XMS_ITS ---
Author Organization [facility] Address 294 [facility] 202 [place] [address] Care Team Providers Care Manager Distribution Center Name Role Phone WILL FULLER Primary Care Provider Unavailab Rodney Jean-Baptiste [phone] REASON FOR VISIT WM f/up Encounters Encounter Location Date Provider Diagnosis [facility] [address] [address] 11/16/2024 Rodney Parker Plan Of Treatment Next Appt Details Provider Name:TAVO CHACON , 01/18/2025 10:45:00 AM, 294 [facility] [address], [place], [address], Progress Notes * PIPODaniin LDOB: [birth year] (34 yo F)Acc No.[id number]:11/16/2024 Patient: Meliza MODEDanikaren Pina Appointment Provider: Alexander Parker :1990 A ge:34 Y S ex:Female Date:11/16/2024 [address] [place], [place] Pcp:WILL FULLER Subjective: * Chief Complaints: * 1 . WM f/up. * Medical History: Objective: * Vitals: Assessment: Plan: * Treatment: * Procedure Codes: N OSHO NO SHOW FEE * Images: * Electronic signature of Nelda Parker PA-C on 12/25/2024 at 10:17 AM EST Sign off status: Pending * Appointment Provider: Alexander Parker Date: 1 Generated for Mike bernal/Tish/Clarice on: 1 02/25/2024 10:17 AM EST
--- NOTE | 2024-12-25 09:28 | MHC.OFFVIS ---
Vital Signs 12/25/24 09:32 Height 4 ft 11 in Weight 184 lb BMI 37.2 BP 116/74 Intake Visit Reasons: swabs/pap smear Mini Lab Operator: Mini Lab Operator Present (Dariana) Accompanied by: Self / Same As Patient Allergies No Known Allergies Allergy (Verified 12/25/24 09:30) Medication List - Last Reconciled 12/25/24 by Anny Domínguez CNM naproxen 500 mg PO Q12H PRN naproxen 500 mg PO BID phentermine 15 mg PO DAILY Is last menstrual period known: Yes Last menstrual period: 11/24/24 Post menopausal: No Patient : No HPI HPI swabs/pap smear: Details: Patient is being seen at the [facility] office for return visit for repeat Pap smears and cultures specimens were not labeled at the last visit and had to be discarded. Patient returns now with her heavy menses which started with some heavy bleeding after the previous Pap. She had felt premenstrual at the time and new her period was coming it is full on now and has been she has been needing to take frequent bathroom breaks at work because of the heavy bleeding to change her pad it is very frustrating she is in tears she has been seeking answers for her problems she was previously diagnosed with fibroids by Dr. Ryan in 04/05/2022 they had attempted to put in a Mirena IUD and she had what they called or told her was vaginal stenosis and could not get it in and that was frustrating she has been working trying to lose weight thinking that that would shrink her fibroids and she is just really frustrated and tearful and scared. 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. 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 Her 1st visit was last week and this is a visit to repeat the Pap and cultures I offered to do an endometrial biopsy today while she is here to speed up the diagnostic process but she declines she wants to know if her fibroids have shrunk 1st. [facility] Medical History FH: cholecystectomy Ovarian cyst Anemia Fibroids Social History Alcohol intake: current Alcohol intake frequency: holidays/special occasions only Patient Tobacco Use Status: Current someday Tobacco user Substance Use Type: Marijuana Patient : No Current occupational status: employed Current occupation: [employer] Female Reproductive History Menstrual Age of Menarche: 9 Duration of menses: 8-10 days Date of last menstrual period: 11/24/24 control method: none Total pregnancies: 1 Ab induced: 1 History of abnormal pap smear: Yes Physical Exam Vital Signs: Last Vital Signs BP 116/74 12/25/24 09:32 BMI result Body Mass Index 37.2 Other: Patient has very heavy menses today. Menses swabbed from cervix before Pap done testing for STIs also done cervix is long close thick mobile nontender uterus midposition difficult to feel contours completely secondary to adipose does not feel enlarged at present time adnexa nontender we will await ultrasound offered patient to do endometrial biopsy today to speed up her diagnostic process but she declined. External Female Exam: normal external appearance Speculum Exam - Vagina: normal appearance of the vagina and normal vaginal discharge Speculum Exam - Cervix: normal appearance of the cervix Bimanual exam- vagina & uterus: normal bimanual exam, uterine size normal, consistency normal, uterine mobility normal, uterine shape normal and non-tender Bimanual Exam- Adnexa, other: normal adnexae, no masses and No adnexal tenderness Assessment & Plan Assessment & Plan (1) Dysmenorrhea, unspecified: Code(s): N94.6 - Dysmenorrhea, unspecified Category: Medical (2) Menorrhagia with regular cycle: Code(s): N92.0 - Excessive and frequent menstruation with regular cycle Category: Medical (3) Cervical cancer screening: Comment: Repeat Pap smear done today with heavy menses. Previous specimen on labeled and had to be discarded... Code(s): Z12.4 - Encounter for screening for malignant neoplasm of cervix Category: Medical (4) Screen for sexually transmitted diseases: Code(s): Z11.3 - Encounter for screening for infections with a predominantly sexual mode of transmission Category: Medical Plan Patient is being seen at the [facility] office for return visit for repeat Pap smears and cultures specimens were not labeled at the last visit and had to be discarded. Patient returns now with her heavy menses which started with some heavy bleeding after the previous Pap. She had felt premenstrual at the time and new her period was coming it is full on now and has been she has been needing to take frequent bathroom breaks at work because of the heavy bleeding to change her pad it is very frustrating she is in tears she has been seeking answers for her problems she was previously diagnosed with fibroids by Dr. Ryan in 04/05/2022 they had attempted to put in a Mirena IUD and she had what they called or told her was vaginal stenosis and could not get it in and that was frustrating she has been working trying to lose weight thinking that that would shrink her fibroids and she is just really frustrated and tearful and scared. 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. 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 Her 1st visit was last week and this is a visit to repeat the Pap and cultures I offered to do an endometrial biopsy today while she is here to speed up the diagnostic process but she declines she wants to know if her fibroids have shrunk 1st. So we are going to try to move her ultrasound up I offered to order it stat so she could do it today on her day off but she has many family obligations and can not but she believes she could get it done so I am ordering it to be done urgent and requesting that it be done on a day that she can do it which is . I am offering her consultation afterwards to review the results of the ultrasound and thereafter to see if she can see the post secondary professional for next steps discussion I discussed the possible use of a Mirena but 1st it is important to make sure that she does not have any thing cancerous to worry about. Again she declined endometrial biopsy. I did tell her that it would probably be important to consider that again after her ultrasound. Coding Level of Care Code Est Pt Level 3 (22851) Diagnoses Dysmenorrhea, unspecified N94.6 Menorrhagia with regular cycle N92.0 Cervical cancer screening Z12.4 Screen for sexually transmitted diseases Z11.3
[2024-12-25 09:32] VITALS: BP 116/74; BMI 37.2
--- OUTSIDE RECORDS SUMMARY | 2024-12-25 10:18 | XMS_ITS | Patient Health Record ---
Author Organization [employer] [facility] Address [address] [place] [address] [address] [place] [address] Care Team Providers Care Street Sprinkler Name Role Phone WILL FULLER Primary Care Provider Unavailab RONNELL LomeliHAMMAD Unavailable [phone] JasealeksandarRodney whittaker Unavailable [phone] Allergies No Known Allergies Results Component Value Reference Range Notes URINALYSIS WITH REFLEX MICRO SCOPIC Reviewed date:05/16/2024 07:46:29 AM Interpretation: Performing Lab: Notes/Report: Specific [place] Urine 1.026 1.003-1.030 pH, Urine 5.0 5.0-8.0 pH Leukocytes, Urine Negative Negative Nitrite, Urine Negative Negative Protein, Urine Negative <=Trace mg/dL Glucose, Urine Negative Negative mg/dL Ketones, Urine Trace Negative mg/dL Urobilinogen, Urine 0.2 0.2-1.0 mg/dL Bilirubin, Urine Negative Negative Blood, Urine Negative Negative CBC WITH AUTO DIFFERENTIAL Reviewed date:05/15/2024 05:18:26 [...] K/mcL Immature Granulocytes Absolute 0.08 0.00-0.03 K/mcL COMPREHENSIVE METABOLIC PANE L Reviewed date:05/16/2024 07:49:17 [...] 3.2-5.0 g/dL Total Bilirubin 0.5 0.0-1.4 mg/dL CULTURE URINE Reviewed date:05/17/2024 03:42:55 PM Interpretation: Performing Lab: Notes/Report: Culture, Urine 10,000-49,000 CFU/mL Mixed urogenital shan, no uropathogens present. Suggest repeat specimen if clinically indicated. SEDIMENTATION RATE Reviewed date:05/15/2024 05:17:50 PM Interpretation: Performing Lab: Notes/Report: Sed Rate 6 0-20 mm/hr C-REACTIVE PROTEIN Reviewed date:05/16/2024 07:47:57 AM Interpretation: Performing Lab: Notes/Report: C-Reactive Protein <0.29 <=0.50 mg/dL BILIRUBIN DUPLICATE PROCEDUR E TO ORDER Reviewed date:05/16/2024 07:47:51 AM Interpretation: Performing Lab: Notes/Report: Total Bilirubin 0.5 0.0-1.4 mg/dL Bilirubin, Direct 0.2 0.0-0.3 mg/dL Bilirubin, Indirect 0.3 0.0-1.1 mg/dL GASTROINTESTINAL PATHOGENS M OLECULAR STUDY Reviewed date:05/21/2024 [...] Detection by PCR Not Detected Not Detected LIPID PANEL WITH REFLEX TO D IRECT LDL Reviewed date:06/03/2024 07:18:50 AM Interpretation: Performing Lab: Notes/Report: Cholesterol 186 0-200 mg/dL Triglycerides 179 0-150 mg/dL HDL 48 >=40 mg/dL LDL Calculated 102 0-100 mg/dL VLDL Cholesterol Murali 35.8 Non HDL Chol. (LDL+VLDL) 138 <145 mg/dL Chol/HDL Ratio 3.9 0.0-4.4 HEMOGLOBIN A1C Reviewed date:06/02/2024 06:41:19 PM Interpretation: Performing Lab: Notes/Report: Hemoglobin A1C 5.6 <6.5 % Mean Bld Glu Estim. 114 THYROID STIMULATING HORMONE Reviewed date:06/03/2024 07:18:44 AM Interpretation: Performing Lab: Notes/Report: TSH 2.22 0.40-4.00 mcIU/mL URINALYSIS WITH REFLEX MICRO SCOPIC Reviewed date:09/14/2024 07:53:02 AM Interpretation: Performing Lab: Notes/Report: Specific [place] Urine 1.024 1.003-1.030 pH, Urine 6.0 5.0-8.0 pH Leukocytes, Urine Negative Negative Nitrite, Urine Negative Negative Protein, Urine Negative <=Trace mg/dL Glucose, Urine Negative Negative mg/dL Ketones, Urine Trace Negative mg/dL Urobilinogen, Urine 1.0 0.2-1.0 mg/dL Bilirubin, Urine Negative Negative Blood, Urine Negative Negative CULTURE URINE Reviewed date:09/17/2024 07:40:19 AM Interpretation: Performing Lab: Notes/Report: Culture, Urine No growth TREPONEMA PALLIDUM ANTIBODY WITH REFLEX TO RPR AND PARTICLE AGGLUTINATION Reviewed date:09/14/2024 07:48:55 AM Interpretation: Performing Lab: Notes/Report: T. Pallidum Antibodies Negative Negative HIV 1, 2 ANTIBODY, P24 [...] HIV screening. HIV Combo AB/AG Negative Negative CHLAMYDIA TRACHOMATIS AND NE ISSERIA GONORRHOEAE MOLECULAR STUDY Reviewed date:09/14/2024 01:54:55 PM Interpretation: Performing Lab: Notes/Report: Neisseria gonorrhoeae PCR Negative Negative Chlamydia trachomatis PCR Negative Negative VAGINITIS PATHOGENS MOLECULA R STUDY Reviewed date:09/14/2024 01:54:52 PM Interpretation: Performing Lab: Notes/Report: Trichomonas vaginalis Negative Negative Gardnerella vaginalis Positive Negative Molly Species Negative Negative URINALYSIS WITH REFLEX MICRO SCOPIC Reviewed date:10/23/2024 12:24:43 PM Interpretation: Performing Lab: Notes/Report: Specific [place] Urine 1.026 1.003-1.030 pH, Urine 6.0 5.0-8.0 [...] /HPF Hyaline Casts, Urine 2.4 0-3 /LPF CULTURE URINE Reviewed date:10/23/2024 05:03:55 PM Interpretation: Performing Lab: Notes/Report: Culture, Urine No growth TREPONEMA PALLIDUM ANTIBODY WITH REFLEX TO RPR AND PARTICLE AGGLUTINATION Reviewed date:10/23/2024 08:01:30 AM Interpretation: Performing Lab: Notes/Report: T. Pallidum Antibodies Negative Negative HEPATITIS C ANTIBODY Reviewed date:10/23/2024 08:01:56 AM Interpretation: Performing Lab: Notes/Report: Hepatitis C Antibody Negative Negative HIV 1, 2 ANTIBODY, P24 [...] HIV screening. HIV Combo AB/AG Negative Negative CHLAMYDIA TRACHOMATIS AND NE ISSERIA GONORRHOEAE MOLECULAR STUDY Reviewed date:10/23/2024 12:24:31 PM Interpretation: Performing Lab: Notes/Report: Neisseria gonorrhoeae PCR Negative Negative Chlamydia trachomatis PCR Negative Negative HEPATITIS C VIRUS QUANTITATI VE MOLECULAR STUDY Reviewed date:10/23/2024 12:24:33 PM Interpretation: Performing Lab: Notes/Report: HCV Qual Interp Not Detected Not Detected HCV RNA not detected, unable to report quantitative results. HEPATITIS B SCREENING PANEL Reviewed date:10/23/2024 08:01:33 AM Interpretation: Performing Lab: Notes/Report: Hepatitis B Surface Ag Negative Negative Hep B Core Total Ab Negative Negative Hepatitis B Surface Ab Positive Negative VAGINITIS PATHOGENS MOLECULA R STUDY Reviewed date:10/24/2024 03:07:30 PM Interpretation: Performing Lab: Notes/Report: Trichomonas vaginalis Negative Negative Gardnerella vaginalis Positive Negative Molly Species Positive Negative HERPES SIMPLEX VIRUS 1 AND 2 , IGG Reviewed date:10/23/2024 12:24:36 PM Interpretation: Performing Lab: Notes/Report: HSV 1 IgG 45.80 <=0.90 index cr HSV-1 IgG Interpretation Positive Negative HSV 2 IgG 0.35 <=0.90 index cr HSV-2 IgG Interpretation Negative Negative Reason For Referral No Information [...] Status Risk Notes Problem Morbid obesity (disorder) (193827715) Morbid (severe) obesity due to excess calories (E66.01) Active confirmed Problem Cannabis abuse (22316789) Cannabis abuse, uncomplicated (F12.10) Active confirmed Problem Tobacco user (673525515) Nicotine dependence, cigarettes, uncomplicated (F17.210) Active confirmed Problem Mild intermittent asthma (485232331) Mild intermittent asthma, uncomplicated (J45.20) Active confirmed Vital Signs Heart Rate 80 /min 12/19/2024 Temperature 97.4 degrees Fahrenheit 12/19/2024 Blood pressure diastolic 80 mm Hg 12/19/2024 Oximetry 97 % 12/19/2024 Height 59 in 12/19/2024 Blood pressure systolic 110 mm Hg 12/19/2024 Weight 195.8 lbs 12/19/2024 BMI 39.54 kg/m2 12/19/2024 Encounters Encounter Location Date Provider Diagnosis [facility] [address] [place] [address] 11/16/2024 Ghadeer Mazloum [facility] [address] [place] [address] 06/19/2024 VO GUL Morbid (severe) obesity due to excess calories E66.01 and Dietary counseling and surveillance Z71.3 [facility] [address] [place] [address] 08/01/2024 Ghadeer Mazloum Morbid (severe) obesity due to excess calories E66.01 and Dietary counseling and surveillance Z71.3 [facility] [address] [place] [address] 08/30/[address] [place] [address] 09/06/2024 Ghadeer Mazloum Morbid (severe) obesity due to excess calories E66.01 and Dietary counseling and surveillance Z71.3 [facility] [address] [place] [address] 10/19/2024 Ghadeer Mazloum Morbid (severe) obesity due to excess calories E66.01 and Dietary counseling and surveillance Z71.3 [facility] [address] [place] [address] 12/19/2024 VO GUL Morbid (severe) obesity due to excess calories E66.01 and Dietary counseling and surveillance Z71.[address] [place] [address] 06/20/2024 [facility] [address] [place] [address] 06/20/[address] [place] [address] 06/25/[address] [place] [address] 07/25/[address] [place] [address] 08/30/[address] [place] [address] 09/04/[address] [place] [address] 09/10/[address] [place] [address] 10/19/[address] [place] [address] 10/19/20[facility] Morbid (severe) obesity due to excess calories E66.[address] [place] [address] 10/24/[address] [place] [address] 11/19/2024 Rodney Parker Assessments Encounter Date Diagnosis [...] Meal replacements were recommended. Advised to use zpnn-mmc-kzvgjlm multivitamins and vitamin D. Advised to use [...] Meal replacements were recommended. Advised to use lzgr-rib-kwyxofl multivitamins and vitamin D. Advised to use [...] Meal replacements were recommended. Advised to use duns-lnw-wohjbtx multivitamins and vitamin D. Advised to use [...] this patient under direct supervision of Dr. Chacno, who did not see the patient but [...] Meal replacements were recommended. Advised to use stpg-uje-kmjrcls multivitamins and vitamin D. Advised to use [...] Meal replacements were recommended. Advised to use qdbk-yyr-xhjjale multivitamins and vitamin D. Advised to use [...] Meal replacements were recommended. Advised to use qzda-pxg-lwkrihu multivitamins and vitamin D. Advised to use [...] Meal replacements were recommended. Advised to use zflt-igb-vodhauj multivitamins and vitamin D. Advised to use [...] Meal replacements were recommended. Advised to use yryi-mgq-qtjzdhl multivitamins and vitamin D. Advised to use [...] Meal replacements were recommended. Advised to use pzas-gzl-nzvvnhl multivitamins and vitamin D. Advised to use [...] Meal replacements were recommended. Advised to use mbpx-uim-zjobaxu multivitamins and vitamin D. Advised to use [...] Provider Name:TAVO CHACON , 01/18/2025 10:45:00 AM, [address] [place] [address], [phone], Insurance Providers Payer Name Payer Address Payer Phone Subscriber Number Group Number Insured Name Patient Relationship to Insured Coverage Start Date Coverage End Date [facility] [address] [place] [phone] [id number] Jeri Rodriguez Self - patient is the insured 5 Medical (General) History Medical History History ICD Code seasonal allergies asthma Personal history of COVID-19 Surgical History Surgery Date(Month/Year) cholecystectomy
--- OUTSIDE RECORDS SUMMARY | 2024-12-25 10:18 | XMS_ITS | Clinical Summary ---
Author Organization [address] [place] [address] [place] [phone] Phone Care Team Providers Care Hand Bulldozer Name Role Phone Judy Turner MD Primary Care Provider [phone] Surgical History Surgery Date Site/Laterality Comments COLPOSCOPY 2010 and 2016 PROCEDURE: MI COLPOSCOPY ENTIRE VAGINA W/VAGINA/CERVIX BX; COMMENT: CIN1 [...] and 08/2016 Major depression in remissio n ([facility] V24) 11/15/2015 DX:Major depression in remis isabell ([facility]) Marijuana use 04/26/2018 DX:Marijuana use STD exposure [...] Used Date Smoking Tobacco: Some Days Cigarettes 16.8 Started: 03/20/2008 Smokeless Tobacco: Never Alcohol Use [...] Completed 11/14/1990, 09/14/1989 IPV Vaccines Completed 08/14/1993, 06/0 02/1990, 01/14/1989, Additional history exists Hepatitis B Vaccines [...] Hepatitis C antibody (10/22/2024 2:49 PM EDT) Hepatitis C Antibody Negative Negative LAB CHEMISTRY METHOD 10/22/2024 8:53 PM EDT [facility] Blood Venous blood specimen / Unknown Venipuncture / Unknown 10/22/2024 2:49 PM EDT 10/22/2024 2:49 PM EDT us Iverson Wren [employer] LAB BLOOD ORDERABLES Final Resul t [facility] [address] [place] [address], [place] [phone] * HIV 1,2 antibody, p24 antigen with reflex to differentiation (10/22/2024 2:49 PM EDT) HIV Combo AB/AG Negative Negative LAB CHEMISTRY METHOD 10/22/2024 8:54 PM EDT [facility] Blood Venous blood specimen / Unknown Venipuncture / Unknown 10/22/2024 2:49 PM EDT 10/22/2024 2:49 PM EDT Narrative [facility] - 10/22/2024 8:54 PM [...] recommendation for HIV screening. us Iverson Wren [employer] LAB BLOOD ORDERABLES Final Resul t [facility] [address] [place] [address], [place] [phone] * (ABNORMAL) Urinalysis with reflex microscopic (10/22/2024 2:49 PM EDT) Specific [place] Urine 1.026 1.003 - 1.030 LAB URINALYSIS - AUTOMATED METHOD [facility]2024 [facility] pH, Urine 6.0 5.0 - 8.0 pH LAB URINALYSIS - AUTOMATED METHOD 10/22/2024 8:14 PM [facility] Leukocytes, Urine Small(A) Negative LAB URINALYSIS - AUTOMATED METHOD 10/22/2024 8:14 PM [facility] Nitrite, Urine Negative Negative LAB URINALYSIS - AUTOMATED METHOD 10/22/2024 8:14 PM [facility] Protein, Urine Negative <=Trace mg/dL LAB URINALYSIS - AUTOMATED METHOD 10/22/2024 8:14 [facility] Glucose, Urine Negative Negative mg/dL LAB URINALYSIS - AUTOMATED METHOD 10/22/2024 8:14 PM [facility] Ketones, Urine Negative Negative mg/dL LAB URINALYSIS - AUTOMATED METHOD 10/22/2024 8:14 PM [facility] Urobilinogen, Urine 0.2 0.2 - 1.0 mg/dL LAB URINALYSIS - AUTOMATED METHOD 10/22/2024 8:14 PM [facility] Bilirubin, Urine Negative Negative LAB URINALYSIS - AUTOMATED METHOD 10/22/2024 8:14 PM EDT [facility] Blood, Urine Negative Negative LAB URINALYSIS - AUTOMATED METHOD 10/22/2024 8:14 PM [facility] RBC, Urine 2.0 0 - 4 /HPF LAB URINALYSIS - AUTOMATED METHOD 10/22/2024 8:14 [facility] WBC, Urine 10.1(H) 0 - 4 /HPF LAB URINALYSIS - AUTOMATED METHOD 10/22/2024 8:14 PM [facility] Squamous Epithelial, Urine >100(H) 0 - 60 /LPF LAB URINALYSIS - AUTOMATED METHOD 10/22/2024 8:14 PM [facility] Bacteria, Urine Few(A) Negative /HPF LAB URINALYSIS - AUTOMATED METHOD 10/22/2024 8:14 PM [facility] Hyaline Casts, Urine 2.4 0 - 3 /LPF LAB URINALYSIS - AUTOMATED METHOD 10/22/2024 8:14 PM [facility] Urine Urine specimen obtained by clean catch procedure / Unknown Non-blood Collection / Unknown 10/22/2024 2:49 PM EDT 10/22/2024 2:49 PM EDT us Iverson Wren [employer]ING WORK[employer] LAB URINE ORDERABLES Final Resul t [facility] [address] [place] [address], * Treponema pallidum antibody with reflex to RPR and particle agglutination (10/22/2024 2:49 PM EDT) T. Pallidum Antibodies Negative Negative LAB CHEMISTRY METHOD 10/22/2024 10:07 PM EDT [facility] Blood Venous blood specimen / Unknown Venipuncture / Unknown 10/22/2024 2:49 PM EDT 10/22/2024 2:49 PM EDT Iverson Wren [employer] LAB BLOOD ORDERABLES Final Resul t Performing Organization Address City/[facility]/ZIP Co de Phone Number [facility] [address] [place] [address], [place] [phone] * (ABNORMAL) Herpes simplex virus 1 and 2, IgG (10/22/2024 2:49 PM EDT) Pathologist [facility] HSV 1 IgG 45.80(H) <=0.90 index cr LAB CHEMISTRY METHOD 10/23/2024 8:57 AM EDT [facility] HSV-1 IgG Interpretation Positive(A) Negative LAB CHEMISTRY METHOD 10/23/2024 8:57 AM EDT [facility] HSV 2 IgG 0.35 <=0.90 index cr LAB CHEMISTRY METHOD 10/23/2024 8:57 AM EDT [facility] HSV-2 IgG Interpretation Negative Negative LAB CHEMISTRY METHOD 10/23/2024 8:57 AM EDT [facility] Blood Venous blood specimen / Unknown Venipuncture / Unknown 10/22/2024 2:49 PM EDT 10/22/2024 2:49 PM EDT us Iverson Wren [employer] LAB BLOOD ORDERABLES Final Resul t [facility] [address] [place] [address], [place] [phone] * (ABNORMAL) Hepatitis B screening panel (10/22/2024 2:49 PM EDT) Hepatitis B Surface Ag Negative Negative LAB CHEMISTRY METHOD 10/22/2024 8:54 PM EDT [facility] Hep B Core Total Ab Negative Negative LAB CHEMISTRY METHOD 10/22/2024 8:54 PM EDT [facility] Hepatitis B Surface Ab Positive(A) Negative LAB CHEMISTRY METHOD 10/22/2024 8:54 PM EDT [facility] Blood Venous blood specimen / Unknown Venipuncture / Unknown 10/22/2024 2:49 PM EDT 10/22/2024 2:49 PM EDT us Iverson Wren [employer] LAB BLOOD ORDERABLES Final Resul t Performing Organization Address City/[facility]/ZIP Co de Phone Number [facility] [address] [place] [address], * (ABNORMAL) Vaginitis pathogens molecular study (10/22/2024 2:49 PM EDT) Pathologist [facility] Trichomonas vaginalis Negative Negative 10/23/2024 11:15 AM EDT [facility] Gardnerella vaginalis Positive(A) Negative 10/23/2024 11:15 AM EDT [facility] Molly Species Positive(A) Negative 10/24/19 11:15 AM EDT [facility] Swab Vaginal structure / Unknown Non-blood Collection / Unknown 10/22/2024 2:49 PM EDT 10/22/2024 2:49 PM EDT us Iverson Wren [employer] LAB MICROBIOLOGY - GENERAL ORDER THANG Final Result [facility] [address] [place] [address], [place] [phone] * Hepatitis C virus quantitative molecular study (10/22/2024 2:49 PM EDT) Pathologist [facility] HCV Qual Interp Not Detected Not Detected LAB MOLECULAR DIAGNOSTICS METHOD 10/23/2024 10:13 AM EDT [facility] Comment:HCV RNA not detected , unable to report quantitative results. Blood Venous blood specimen / Unknown Venipuncture / Unknown 10/22/2024 2:49 PM EDT 10/22/2024 2:49 PM EDT [facility] LAB BLOOD ORDERABLES Final Resul t [facility] [address] [place] [address], [place] [phone] * Chlamydia trachomatis and Neisseria gonorrhoeae molecular study (10/22/2024 2:49 PM EDT) Neisseria gonorrhoeae PCR Negative Negative LAB MOLECULAR DIAGNOSTICS METHOD 10/23/2024 11:05 AM EDT [facility] Chlamydia trachomatis PCR Negative Negative LAB MOLECULAR DIAGNOSTICS METHOD 10/23/2024 11:05 AM EDT [facility] Swab Urine specimen from urethra / Unknown Non-blood Collection / Unknown 10/22/2024 2:49 PM EDT 10/22/2024 2:49 PM EDT [facility] LAB MICROBIOLOGY - GENERAL ORDER THANG Final Result Performing Organization Address [facility] Co de Phone Number [facility] [address] [place] [address], [place] [phone] * Culture urine (10/22/2024 2:49 PM EDT) Pathologist [facility] Culture, Urine No growth 10/23/2024 1:44 PM EDT [facility] Urine Urine specimen from urethra / Unknown Non-blood Collection / Unknown 10/22/2024 2:49 PM EDT 10/22/2024 2:49 PM EDT [facility] LAB MICROBIOLOGY - GENERAL ORDER THANG Final Result [facility] [address] [place] [address], [place] [phone] * (ABNORMAL) Lipid panel with reflex to direct LDL (06/01/2024 2:17 PM EDT) Cholesterol 186 0 - 200 mg/dL LAB CHEMISTRY METHOD 06/01/2024 7:59 PM EDT [facility] Triglycerides 179(H) 0 - 150 mg/dL LAB CHEMISTRY METHOD 06/01/2024 7:59 PM EDT [facility] HDL 48 >=40 mg/dL LAB CHEMISTRY METHOD 06/01/2024 7:59 PM EDT [facility] LDL Calculated 102(H) 0 - 100 mg/dL LAB CHEMISTRY METHOD 06/01/2024 7:59 PM EDT [facility] VLDL Cholesterol Murali 35.8 mg/dL LAB CHEMISTRY METHOD 06/01/2024 7:59 PM EDT [facility] Non HDL Chol. (LDL+VLDL) 138 <145 mg/dL LAB CHEMISTRY METHOD 06/01/2024 7:59 PM EDT [facility] Chol/HDL Ratio 3.9 0.0 - 4.4 LAB CHEMISTRY METHOD 06/01/2024 7:59 PM EDT [facility] Blood Venous blood specimen / Unknown Venipuncture / Unknown 06/01/2024 2:17 PM EDT 06/01/2024 2:18 PM EDT us Iverson Wren [employer] WORK[employer] LAB BLOOD ORDERABLES Final Resul t [facility] [address] [place] [address], [place] [phone] * Pap smear (05/23/2018) 05/23/2018 Narrative HISTORICAL TESTING LAB RESULTING AGENCY - 06/01/2018 11:12 AM EDT [id number] THINPREP PAP, IMAGED: ATYPICAL SQUAMOUS CELLS OF [...] OF ASCUS. PAP HX NEG [Z12.4, Z01.419] Fifi Rosas MD LAB CYTOLOGY ORDERABLES Final R esult HISTORICAL TESTING LAB RESULTING AGENCY from Last 3 Months or Most Recently Relevant to Health Maintenance Additional Health Concerns Infection Onset Date Last Indicated Herpes simplex 10/22/2024 10/22/2024 Insurance [facility] [facility] MEDICA[place] - [place] [facility] [address] [place] [address] Care Teams Hand Bulldozer Relationship Specialty Start Date End Date Judy Turner MD [address] [place] [id number] PCP - General Internal Medicine 08/28/21
--- OUTSIDE RECORDS SUMMARY | 2024-12-25 10:18 | XMS_ITS | Encounter Summary ---
Author Organization [facility] Address [address] [place] [address] Care Team Providers Care Brake Assembler Name Role Phone Yue Judy Ribera MD Primary Care Provider [phone] Encounter Details Date Type Department Care Team (Latest Contact Info) Description 09/13/2024 Lab Requisition [facility] - Main Lab [address] [facility] [place] [address] [facility] [address] [address] Urinary tract infection, site not specified; Hematuria, [...] vaginalis Negative Negative 09/14/2024 10:36 AM EDT [facility] Gardnerella vaginalis Positive(A) Negative 09/14/2024 10:36 AM EDT [facility] Molly Species Negative Negative 10:36 AM EDT [facility] Swab Vaginal structure / Unknown 09/13/2024 09/13/2024 7:32 PM EDT [facility] LAB MICROBIOLOGY - GENERAL ORDER THANG Final Result [facility] [address] [place] [address], * Chlamydia trachomatis and Neisseria gonorrhoeae molecular study (09/13/2024 12:00 AM EDT) Neisseria gonorrhoeae PCR Negative Negative LAB MOLECULAR DIAGNOSTICS METHOD 09/14/2024 9:36 AM EDT [facility] Chlamydia trachomatis PCR Negative Negative LAB MOLECULAR DIAGNOSTICS METHOD 09/14/2024 9:36 AM EDT [facility] Urine Cervix uteri structure / Unknown 09/13/2024 09/13/2024 7:32 PM EDT [facility] LAB MICROBIOLOGY - GENERAL ORDER THANG Final Result [facility] [address] [place] [address], [place] [phone] * (ABNORMAL) Urinalysis with reflex microscopic (09/13/2024 12:00 AM EDT) Pathologist [facility] Specific [place] Urine 1.024 1.003 - 1.030 LAB URINALYSIS - AUTOMATED METHOD [facility] pH, Urine 6.0 5.0 - 8.0 pH LAB URINALYSIS - AUTOMATED METHOD 09/13/2024 8:03 PM [facility] Leukocytes, Urine Negative Negative LAB URINALYSIS - AUTOMATED METHOD 09/13/2024 8:03 PM [facility] Nitrite, Urine Negative Negative LAB URINALYSIS - AUTOMATED METHOD 09/13/2024 8:03 PM [facility] Protein, Urine Negative <=Trace mg/dL LAB URINALYSIS - AUTOMATED METHOD 09/13/2024 8:03 PM [facility] Glucose, Urine Negative Negative mg/dL LAB URINALYSIS - AUTOMATED METHOD 09/13/2024 8:03 PM [facility] Ketones, Urine Trace(A) Negative mg/dL LAB URINALYSIS - AUTOMATED METHOD 09/13/2024 8:03 PM [facility] Urobilinogen, Urine 1.0 0.2 - 1.0 mg/dL LAB URINALYSIS - AUTOMATED METHOD 09/13/2024 8:03 PM [facility] Bilirubin, Urine Negative Negative LAB URINALYSIS - AUTOMATED METHOD 09/13/2024 8:03 PM [facility] Blood, Urine Negative Negative LAB URINALYSIS - AUTOMATED METHOD 09/13/2024 8:03 PM EDT [facility] Urine Urine specimen obtained by clean catch procedure / Unknown 09/13/2024 09/13/2024 7:32 PM EDT [facility] LAB URINE ORDERABLES Final Resul t Performing Organization Address [facility]/ZIP Co de Phone Number [facility] [address] [place] [address], [place] [phone] * Culture urine (09/13/2024 12:00 AM EDT) Culture, Urine No growth 09/14/2024 1:58 PM EDT [facility] Urine Urine specimen obtained by clean catch procedure / Unknown 09/13/2024 09/13/2024 7:32 PM EDT [facility] LAB MICROBIOLOGY - GENERAL ORDER THANG Final Result Performing Organization Address [facility]/ZIP Co de Phone Number [facility] [address] [place] [address], [place] [phone] documented in this encounter Visit Diagnoses Diagnosis Urinary tract infection, site not specified Hematuria, unspecified Other specified noninflammatory disorders of vagina documented in this encounter Additional Health Concerns Infection Onset Date Last Indicated Resolved Time Herpes simplex 10/22/2024 10/22/2024 documented as of this encounter Care Teams Brake Assembler Relationship Specialty Start Date End Date Judy Turner MD [address] [place] [address] PCP - General Internal Medicine 08/28/21 documented as of this encounter
== END 2024-12-25 13:58 | disposition home or self-care (01) ==
LOC: HO.HWSM 09:27
PROVIDERS: PCP Internal Medicine; Visit Provider Advanced Practice Midwife
DX: N94.6 Dysmenorrhea, unspecified (principal); N92.0 Excessive and frequent menstruation with regular cycle; Z12.4 Encounter for screening for malignant neoplasm of cervix; Z11.3 Encounter for screening for infections with a predominantly sexual mode of transmission
CPT/HCPCS: 99213

== ENCOUNTER 2024-12-25 09:27 | Outpatient (REF) | payer OTHER, SELFPAY ==
[2024-12-27 03:28] LABS: Bacterial Vaginosis PCR NEGATIVE (Negative); Candida Group PCR NOT DETECTED (Not Detect); Candida glab krusei PCR NOT DETECTED (Not Detect); Trichomonas vaginalis PCR NOT DETECTED (Not Detect)
[2024-12-27 03:59] LABS: CT PCR NOT DETECTED (Not Detect.); NG PCR NOT DETECTED (Not Detect.)
== END 2024-12-25 09:28 | disposition home or self-care (01) ==
LOC: HO.LNP 09:27
PROVIDERS: PCP Internal Medicine; Visit Provider Advanced Practice Midwife
DX: N92.0 Excessive and frequent menstruation with regular cycle (principal); N94.6 Dysmenorrhea, unspecified; Z12.4 Encounter for screening for malignant neoplasm of cervix; Z20.2 Contact with and (suspected) exposure to infections with a predominantly sexual mode of transmission
CPT/HCPCS: 81515; 87491; 87591; 87626; 88175

== ENCOUNTER 2025-01-01 16:16 | Outpatient (REF) | payer OTHER, SELFPAY ==
--- OUTSIDE RECORDS SUMMARY | 2025-01-02 13:24 | XMS_ITS | Encounter Summary ---
Author Organization [facility] Address [address] [place] [address] Care Team Providers Care Aircraft Mechanic Electrical And Radio Name Role Phone Yue Judy Ribera MD Primary Care Provider [phone] Encounter Details Date Type Department Care Team (Latest Contact Info) Description 09/13/2024 Lab Requisition [facility] - Main Lab [address] [facility] [place] [address] [facility] [address] [address] Urinary tract infection, site not specified; Hematuria, [...] vaginalis Negative Negative 09/14/2024 10:36 AM EDT [facility] Gardnerella vaginalis Positive(A) Negative 09/14/2024 10:36 AM EDT [facility] Molly Species Negative Negative 10:36 AM EDT [facility] Swab Vaginal structure / Unknown 09/13/2024 09/13/2024 7:32 PM EDT [facility] MICROBIOLOGY - GENERAL ORDER THANG Final Result [facility] [address] [place] [address], * Chlamydia trachomatis and Neisseria gonorrhoeae molecular study (09/13/2024 12:00 AM EDT) Neisseria gonorrhoeae PCR Negative Negative LAB MOLECULAR DIAGNOSTICS METHOD 09/14/2024 9:36 AM EDT [facility] Chlamydia trachomatis PCR Negative Negative LAB MOLECULAR DIAGNOSTICS METHOD 09/14/2024 9:36 AM EDT [facility] Urine Cervix uteri structure / Unknown 09/13/2024 09/13/2024 7:32 PM EDT [facility] LAB MICROBIOLOGY - GENERAL ORDER THANG Final Result [facility] [address] [place] [address], [place] [phone] * (ABNORMAL) Urinalysis with reflex microscopic (09/13/2024 12:00 AM EDT) Pathologist [facility] Specific [place] Urine 1.024 1.003 - 1.030 LAB URINALYSIS - AUTOMATED METHOD 09/13/2024 8:[facility] pH, Urine 6.0 5.0 - 8.0 pH LAB URINALYSIS - AUTOMATED METHOD 09/13/2024 8:03 PM [facility] Leukocytes, Urine Negative Negative LAB URINALYSIS - AUTOMATED METHOD 09/13/2024 8:03 PM [facility] Nitrite, Urine Negative Negative LAB URINALYSIS - AUTOMATED METHOD 09/13/2024 8:03 PM [facility] Protein, Urine Negative <=Trace mg/dL LAB URINALYSIS - AUTOMATED METHOD 09/13/2024 8:03 PM [facility] Glucose, Urine Negative Negative mg/dL LAB URINALYSIS - AUTOMATED METHOD 09/13/2024 8:03 PM [facility] Ketones, Urine Trace(A) Negative mg/dL LAB URINALYSIS - AUTOMATED METHOD 09/13/2024 8:03 PM [facility] Urobilinogen, Urine 1.0 0.2 - 1.0 mg/dL LAB URINALYSIS - AUTOMATED METHOD 09/13/2024 8:03 PM [facility] Bilirubin, Urine Negative Negative LAB URINALYSIS - AUTOMATED METHOD 09/13/2024 8:03 PM [facility] Blood, Urine Negative Negative LAB URINALYSIS - AUTOMATED METHOD 09/13/2024 8:03 PM EDT [facility] Urine Urine specimen obtained by clean catch procedure / Unknown 09/13/2024 09/13/2024 7:32 PM EDT [facility] URINE ORDERABLES Final Resul t Performing Organization Address [facility]/ZIP Co de Phone Number [facility] [address] [place] [address], [place] [phone] * Culture urine (09/13/2024 12:00 AM EDT) Culture, Urine No growth 09/14/2024 1:58 PM EDT [facility] Urine Urine specimen obtained by clean catch procedure / Unknown 09/13/2024 09/13/2024 7:32 PM EDT [facility] MICROBIOLOGY - GENERAL ORDER THANG Final Result Performing Organization Address [facility]/ZIP Co de Phone Number [facility] [address] [place] [address], [place] [phone] documented in this encounter Visit Diagnoses Diagnosis Urinary tract infection, site not specified Hematuria, unspecified Other specified noninflammatory disorders of vagina documented in this encounter Additional Health Concerns Infection Onset Date Last Indicated Resolved Time Herpes simplex 10/22/2024 10/22/2024 documented as of this encounter Care Teams Aircraft Mechanic Electrical And Radio Relationship Specialty Start Date End Date Judy Turner MD [address] [place] [address] PCP - General Internal Medicine 08/28/21 documented as of this encounter
--- OUTSIDE RECORDS SUMMARY | 2025-01-02 13:24 | XMS_ITS | Clinical Summary ---
Author Organization [address] [place] [address] [place] [phone] Phone Care Team Providers Care Interlocking Pavement Installer Name Role Phone Judy Turner MD Primary Care Provider [phone] Surgical History Surgery Date Site/Laterality Comments COLPOSCOPY 2010 and 2016 PROCEDURE: NM COLPOSCOPY ENTIRE VAGINA W/VAGINA/CERVIX BX; COMMENT: CIN1 [...] and 08/2016 Major depression in remissio n ([facility] V24) 11/15/2015 DX:Major depression in remis isabell ([facility]) Marijuana use 04/26/2018 DX:Marijuana use STD [...] LAB CHEMISTRY METHOD 10/22/2024 8:53 PM EDT [facility] Blood Venous blood specimen / Unknown Venipuncture / Unknown 10/22/2024 2:49 PM EDT 10/22/2024 2:49 PM EDT us [facility] [employer] LAB BLOOD ORDERABLES Final Resul t [facility] [address] [place] [address], [place] [phone] * HIV 1,2 antibody, p24 antigen with reflex to differentiation (10/22/2024 2:49 PM EDT) HIV Combo AB/AG Negative Negative LAB CHEMISTRY METHOD 10/22/2024 8:54 PM EDT [facility] Blood Venous blood specimen / Unknown Venipuncture / Unknown 10/22/2024 2:49 PM EDT 10/22/2024 2:49 PM EDT Narrative [facility] - 10/22/2024 8:54 PM [...] recommendation for HIV screening. us [facility]on [facility] [employer] LAB BLOOD ORDERABLES Final Resul t [facility] [address] [place] [address], [place] [phone] * (ABNORMAL) Urinalysis with reflex microscopic (10/22/2024 2:49 PM EDT) Specific [place] Urine 1.026 1.003 - 1.030 LAB URINALYSIS - AUTOMATED METHOD [facility] pH, Urine 6.0 5.0 - 8.0 pH LAB URINALYSIS - AUTOMATED METHOD 10/22/2024 8:14 PM [facility] Leukocytes, Urine Small(A) Negative LAB URINALYSIS - AUTOMATED METHOD 10/22/2024 8:14 PM [facility] Nitrite, Urine Negative Negative LAB URINALYSIS - AUTOMATED METHOD 10/22/2024 8:14 PM [facility] Protein, Urine Negative <=Trace mg/dL LAB URINALYSIS - AUTOMATED METHOD 10/22/2024 8:[facility] Glucose, Urine Negative Negative mg/dL LAB URINALYSIS - AUTOMATED METHOD 10/22/2024 8:14 PM [facility] Ketones, Urine Negative Negative mg/dL LAB URINALYSIS - AUTOMATED METHOD 10/22/2024 8:14 PM [facility] Urobilinogen, Urine 0.2 0.2 - 1.0 mg/dL LAB URINALYSIS - AUTOMATED METHOD 10/22/2024 8:14 PM [facility] Bilirubin, Urine Negative Negative LAB URINALYSIS - AUTOMATED METHOD 10/22/2024 8:14 PM EDT [facility] Blood, Urine Negative Negative LAB URINALYSIS - AUTOMATED METHOD 10/22/2024 8:14 PM [facility] RBC, Urine 2.0 0 - 4 /HPF LAB URINALYSIS - AUTOMATED METHOD 10/22/2024 8:[facility] WBC, Urine 10.1(H) 0 - 4 /HPF LAB URINALYSIS - AUTOMATED METHOD 10/22/2024 8:14 PM [facility] Squamous Epithelial, Urine >100(H) 0 - 60 /LPF LAB URINALYSIS - AUTOMATED METHOD 10/22/2024 8:14 PM [facility] Bacteria, Urine Few(A) Negative /HPF LAB URINALYSIS - AUTOMATED METHOD 10/22/2024 8:14 PM [facility] Hyaline Casts, Urine 2.4 0 - 3 /LPF LAB URINALYSIS - AUTOMATED METHOD 10/22/2024 8:14 PM [facility] Urine Urine specimen obtained by clean catch procedure / Unknown Non-blood Collection / Unknown 10/22/2024 2:49 PM EDT 10/22/2024 2:49 PM EDT us [employer] [employer] LAB URINE ORDERABLES Final Resul t [facility] [address] [place] [address], * Treponema pallidum antibody with reflex to RPR and particle agglutination (10/22/2024 2:49 PM EDT) T. Pallidum Antibodies Negative Negative LAB CHEMISTRY METHOD 10/22/2024 10:07 PM EDT [facility] Blood Venous blood specimen / Unknown Venipuncture / Unknown 10/22/2024 2:49 PM EDT 10/22/2024 2:49 PM EDT [facility] [employer] LAB BLOOD ORDERABLES Final Resul t Performing Organization Address City/[facility]/ZIP Co de Phone Number [facility] [address] [place] [address], [place] [phone] * (ABNORMAL) Herpes simplex virus 1 and 2, IgG (10/22/2024 2:49 PM EDT) Pathologist [facility] HSV 1 IgG 45.80(H) <=0.90 index cr LAB CHEMISTRY METHOD 10/23/2024 8:57 AM EDT [facility] HSV-1 IgG Interpretation Positive(A) Negative LAB CHEMISTRY METHOD 10/23/2024 8:57 AM EDT [facility] HSV 2 IgG 0.35 <=0.90 index cr LAB CHEMISTRY METHOD 10/23/2024 8:57 AM EDT [facility] HSV-2 IgG Interpretation Negative Negative LAB CHEMISTRY METHOD 10/23/2024 8:57 AM EDT [facility] Blood Venous blood specimen / Unknown Venipuncture / Unknown 10/22/2024 2:49 PM EDT 10/22/2024 2:49 PM EDT us Iverson Wren [employer] LAB BLOOD ORDERABLES Final Resul t [facility] [address] [place] [address], [place] [phone] * (ABNORMAL) Hepatitis B screening panel (10/22/2024 2:49 PM EDT) Hepatitis B Surface Ag Negative Negative LAB CHEMISTRY METHOD 10/22/2024 8:54 PM EDT [facility] Hep B Core Total Ab Negative Negative LAB CHEMISTRY METHOD 10/22/2024 8:54 PM EDT [facility] Hepatitis B Surface Ab Positive(A) Negative LAB CHEMISTRY METHOD 10/22/2024 8:54 PM EDT [facility] Blood Venous blood specimen / Unknown Venipuncture / Unknown 10/22/2024 2:49 PM EDT 10/22/2024 2:49 PM EDT us I[employer]on W[facility] [employer] LAB BLOOD ORDERABLES Final Resul t Performing Organization Address City/[facility]/ZIP Co de Phone Number [facility] [address] [place] [address], * (ABNORMAL) Vaginitis pathogens molecular study (10/22/2024 2:49 PM EDT) Pathologist [facility] Trichomonas vaginalis Negative Negative 10/23/2024 11:15 AM EDT [facility] Gardnerella vaginalis Positive(A) Negative 10/23/2024 11:15 AM EDT [facility] Molly Species Positive(A) Negative 10/24/19 11:15 AM EDT [facility] Swab Vaginal structure / Unknown Non-blood Collection / Unknown 10/22/2024 2:49 PM EDT 10/22/2024 2:49 PM EDT us Iverson W[facility] [employer] LAB MICROBIOLOGY - GENERAL ORDER THANG Final Result [facility] [address] [place] [address], [place] [phone] * Hepatitis C virus quantitative molecular study (10/22/2024 2:49 PM EDT) Pathologist [facility] HCV Qual Interp Not Detected Not Detected LAB MOLECULAR DIAGNOSTICS METHOD 10/23/2024 10:13 AM EDT [facility] Comment:HCV RNA not detected , unable to report quantitative results. Blood Venous blood specimen / Unknown Venipuncture / Unknown 10/22/2024 2:49 PM EDT 10/22/2024 2:49 PM EDT [facility] LAB BLOOD ORDERABLES Final Resul t [facility] [address] [place] [address], [place] [phone] * Chlamydia trachomatis and Neisseria gonorrhoeae molecular study (10/22/2024 2:49 PM EDT) Neisseria gonorrhoeae PCR Negative Negative LAB MOLECULAR DIAGNOSTICS METHOD 10/23/2024 11:05 AM EDT [facility] Chlamydia trachomatis PCR Negative Negative LAB MOLECULAR DIAGNOSTICS METHOD 10/23/2024 11:05 AM EDT [facility] Swab Urine specimen from urethra / Unknown Non-blood Collection / Unknown 10/22/2024 2:49 PM EDT 10/22/2024 2:49 PM EDT [facility] LAB MICROBIOLOGY - GENERAL ORDER THANG Final Result Performing Organization Address [facility] Co de Phone Number [facility] [address] [place] [address], [place] [phone] * Culture urine (10/22/2024 2:49 PM EDT) Pathologist [facility] Culture, Urine No growth 10/23/2024 1:44 PM EDT [facility] Urine Urine specimen from urethra / Unknown Non-blood Collection / Unknown 10/22/2024 2:49 PM EDT 10/22/2024 2:49 PM EDT [facility] LAB MICROBIOLOGY - GENERAL ORDER THANG Final Result [facility] [address] [place] [address], [place] [phone] * (ABNORMAL) Lipid panel with reflex to direct LDL (06/01/2024 2:17 PM EDT) Cholesterol 186 0 - 200 mg/dL LAB CHEMISTRY METHOD 06/01/2024 7:59 PM EDT [facility] Triglycerides 179(H) 0 - 150 mg/dL LAB CHEMISTRY METHOD 06/01/2024 7:59 PM EDT [facility] HDL 48 >=40 mg/dL LAB CHEMISTRY METHOD 06/01/2024 7:59 PM EDT [facility] LDL Calculated 102(H) 0 - 100 mg/dL LAB CHEMISTRY METHOD 06/01/2024 7:59 PM EDT [facility] VLDL Cholesterol Murali 35.8 mg/dL LAB CHEMISTRY METHOD 06/01/2024 7:59 PM EDT [facility] Non HDL Chol. (LDL+VLDL) 138 <145 mg/dL LAB CHEMISTRY METHOD 06/01/2024 7:59 PM EDT [facility] Chol/HDL Ratio 3.9 0.0 - 4.4 LAB CHEMISTRY METHOD 06/01/2024 7:59 PM EDT [facility] Blood Venous blood specimen / Unknown Venipuncture / Unknown 06/01/2024 2:17 PM EDT 06/01/2024 2:18 PM EDT us Iverson Wren [employer] LAB BLOOD ORDERABLES Final Resul t [facility] [address] [place] [address], [place] [phone] * Pap smear (05/23/2018) 05/23/2018 Narrative HISTORICAL TESTING LAB RESULTING AGENCY - 06/01/2018 11:12 AM EDT [id number] THINPREP PAP, IMAGED: ATYPICAL SQUAMOUS CELLS OF [...] Last Indicated Herpes simplex 10/22/2024 10/22/2024 Insurance [facility] MEDICAID - [place] [facility] [address] [place] [address] Care Teams Interlocking Pavement Installer Relationship Specialty Start Date End Date Judy Turner MD [address] [place] [id number] PCP - General Internal Medicine 08/28/21
== END 2025-01-01 16:17 | disposition home or self-care (01) ==
LOC: HO.US 16:16
PROVIDERS: PCP Internal Medicine; Visit Provider Nurse Practitioner Family
DX: Z13.89 Encounter for screening for other disorder (principal)